=== PATIENT | male | born 1965 | race Caucasian/White ===

== ENCOUNTER 2017-07-03 09:47 | Inpatient (IN) | payer MEDICAID ==
[2017-07-03] MEDS ORDERED: ACETAMINOPHEN 325 MG TABLET PO ONE (10:11)
[2017-07-03] MEDS ORDERED: HYDROMORPHONE HCL INJ/PF 2 MG/ML AMPULE IV ONE ×2 (10:14→12:04)
--- NOTE | 2017-07-03 10:16 | ER Document Report ---
ED Extremity Problem, Lower - General Chief Complaint: Fall Injury Stated Complaint: FALL ANKLE LEG PAIN Time Seen by Provider: 07/03/17 10:10 Notes: The patient is a 52-year-old male, past medical history chronic pain (on 125 mg methadone a day), presents after he fell off an 8 foot ladder and landed on his bilateral feet. He is complaining of right ankle and foot pain and left knee pain. Patient denies back pain, head injury, neck pain, numbness, tingling, open wounds, LOC, syncope or headache. - Related Data Allergies/Adverse Reactions: No Known Allergies Allergy (Unverified 07/03/17 11:07) Past Medical History - General Information source: Patient - Social History Smoking Status: Unknown if Ever Smoked Family History: Reviewed & Not Pertinent Review of Systems - Review of Systems Notes: REVIEW OF SYSTEMS: CONSTITUTIONAL: -fevers, -chills EENT: -eye pain, -difficulty swallowing, -nasal congestion CARDIOVASCULAR: -chest pain, -syncope. RESPIRATORY: -cough, -SOB GASTROINTESTINAL: -abdominal pain, -nausea, -vomiting, -diarrhea GENITOURINARY: -dysuria, -hematuria MUSCULOSKELETAL: +right ankle and foot pain, +left knee pain, -back pain, -neck pain SKIN: -rash or skin lesions. HEMATOLOGIC: -easy bruising or bleeding. LYMPHATIC: -swollen, enlarged glands. NEUROLOGICAL: -altered mental status or loss of consciousness, -headache, - neurologic symptoms PSYCHIATRIC: -anxiety, -depression. ALL OTHER SYSTEMS REVIEWED AND NEGATIVE. Physical Exam - Vital signs Vitals: Temp Pulse Resp BP Pulse Ox 98.8 F 66 12 151/57 H 98 07/03/17 10:21 07/03/17 10:21 07/03/17 10:21 07/03/17 10:21 07/03/17 10:21 - Notes Notes: PHYSICAL EXAMINATION: GENERAL: Uncomfortable. HEAD: Atraumatic, normocephalic. EYES: Pupils equal round and reactive to light, extraocular movements intact, sclera anicteric, conjunctiva are normal. ENT: nares patent, oropharynx clear without exudates. Moist mucous membranes. NECK: Normal range of motion, supple without lymphadenopathy LUNGS: Breath sounds clear to auscultation bilaterally and equal. No wheezes rales or rhonchi. HEART: Regular rate and rhythm without murmurs ABDOMEN: Soft, nontender, normoactive bowel sounds. No guarding, no rebound. No masses appreciated. EXTREMITIES: Swelling and tenderness of right calcaneus. Tenderness and swelling of left knee. Strong distal pulses. NEUROLOGICAL: Cranial nerves grossly intact. Normal speech. Normal sensory and motor exams. PSYCH: Normal mood, normal affect. SKIN: Warm, Dry, normal turgor, no rashes or lesions noted. Course - Re-evaluation Re-evalutation: Patient with a right calcaneal fracture and left proximal comminuted tibia fracture after a fall off a a foot ladder where he landed on his feet. He has no lumbar tenderness or any other injuries. Patient's pain under control after 2 mg IV Dilaudid. 07/03/17 12:[address] Shah. He will consult on patient if the patient is unable to perform ADLs at home. Spoke to patient and offered him outpatient follow-up or admission. Because patient has a left proximal tibia fracture and a right calcaneal fracture, he thinks it will be difficult for him to go up his multiple stairs and steps in his house. Agree that admission is prudent for this patient to help prevent any further injuries. He does not have a primary care physician. 07/03/17 12:[address] Ledbetter and she has accepted patient to Medicine floor. - Vital Signs Vital signs: Temp Pulse Resp BP Pulse Ox 98.8 F 66 12 151/57 H 98 07/03/17 10:21 07/03/17 10:21 07/03/17 10:21 07/03/17 10:21 07/03/17 10:21 - Laboratory Result Diagrams: 07/03/17 13:28 07/03/17 13:28 Laboratory results interpreted by me: 07/03/17 07/03/17 13:28 13:28 WBC 16.2 H Hgb 12.9 L RDW 14.2 H Seg Neutrophils % 88.4 H Lymphocytes % 7.7 L Absolute Neutrophils 14.3 H Glucose 127 H Alkaline Phosphatase 36 L - Diagnostic Test Radiology reviewed: Image reviewed, Reports reviewed Radiology results interpreted by me: Right ankle x-ray: Apparent calcaneal fractures. No acute abnormality is seen in the ankle. Left knee x-ray: Comminuted fracture of the proximal tibia. Discharge - Discharge Clinical Impression: Impaired ambulation Right calcaneal fracture Qualifiers: Encounter type: initial encounter Calcaneus location: unspecified portion of calcaneus Fracture type: closed Fracture alignment: nondisplaced Qualified Code( s): S92.001A - Unspecified fracture of right calcaneus, initial encounter for closed fracture Closed fracture of left proximal tibia Qualifiers: Encounter type: initial encounter Fracture morphology: unspecified fracture morphology Qualified Code(s): S82.102A - Unspecified fracture of upper end of left tibia, initial encounter for closed fracture Condition: Stable Disposition: ADMITTED INPATIENT Admitting Provider: Hospitalist - [facility] Unit Admitted: Medical Floor
--- NOTE | 2017-07-03 11:57 | RADIOLOGY REPORT (SQ) ---
EXAM DESCRIPTION: ANKLE RIGHT COMPLETE COMPLETED DATE/TIME: 07/03/2017 11:33 am REASON FOR STUDY: Fall COMPARISON: None. NUMBER OF VIEWS: Three views. TECHNIQUE: AP, lateral, and oblique radiographic images acquired of the right ankle. LIMITATIONS: Please note: There is a demographics mismatch warning. FINDINGS: MINERALIZATION: Normal. BONES: No acute fracture dislocation the ankle. However, the calcaneus has a heterogeneous appearanc e suggestive of fractures. JOINTS: No effusions. SOFT TISSUES: No soft tissue swelling. No foreign body. OTHER: No other significant finding. IMPRESSION: Apparent calcaneal fractures. No acute abnormality is seen in the ankle. TECHNICAL DOCUMENTATION: JOB ID: [id number] [employer]- All Rights Reserved Reading location - IP/workstation name: [email or web address]
--- NOTE | 2017-07-03 12:01 | RADIOLOGY REPORT (SQ) ---
EXAM DESCRIPTION: KNEE RIGHT 2 VIEWS COMPLETED DATE/TIME: 07/03/2017 11:33 am REASON FOR STUDY: right knee pain, fall COMPARISON: None. NUMBER OF VIEWS: Two views. TECHNIQUE: AP and lateral radiographic images acquired of the right knee. LIMITATIONS: Demographics mismatch warning FINDINGS: MINERALIZATION: Normal. BONES: There is a comminuted fracture of the proximal tibia predominantly involving the lateral tibia l plateau. However, there is an oblique fracture line extending from lateral to the lateral tibial s pine obliquely in medially with a large fragment there is apparently slipped medially and inferiorly. JOINT: Joint effusion is present SOFT TISSUES: No soft tissue swelling. No radio-opaque foreign body. OTHER: No other significant finding. IMPRESSION: Comminuted fracture of the proximal tibia. TECHNICAL DOCUMENTATION: JOB ID: [id number] [employer]- All Rights Reserved Reading location - IP/workstation name: [email or web address]
[2017-07-03] MEDS ORDERED: MORPHINE SULFATE 10 MG/ML INJ IV ONE (13:51)
[2017-07-03 13:53] LABS: BASOPHILS % (AUTO) 0.1 % (0-2); EOSINOPHILS % (AUTO) 0.1 % (0-6); HEMATOCRIT 39.5 % (37.9-51.0); HEMOGLOBIN 12.9 g/dL (13.5-17.0); LYMPHOCYTES % (AUTO) 7.7 % (13-45); MEAN CORPUSCULAR HEMOGLOBIN 28.7 pg (27.0-33.4); MEAN CORPUSCULAR HGB CONC 32.6 g/dL (32.0-36.0); MEAN CORPUSCULAR VOLUME 88 fl (80-97); MONOCYTES % (AUTO) 3.7 % (3-13); PLATELET COUNT 282 10^3/uL (150-450); RED CELL DISTRIBUTION WIDTH 14.2 % (11.5-14.0); SEGMENTED NEUTROPHILS % (AUTO) 88.4 % (42-78); WHITE BLOOD COUNT 16.2 10^3/uL (4.0-10.5)
[2017-07-03 13:54] LABS: ABSOLUTE LYMPHOCYTES (AUTO) 1.2 10^3/uL (0.5-4.7); ABSOLUTE MONOCYTES (AUTO) 0.6 10^3/uL (0.1-1.4); ABSOLUTE NEUT (AUTO) 14.3 10^3/uL (1.7-8.2); TOTAL CELLS COUNTED % (AUTO) 100 %
[2017-07-03 14:01] LABS: INTERNATIONAL RATION (INR) 0.94; PROTHROMBIN TIME 13.3 SEC (11.4-15.4)
[2017-07-03 14:02] LABS: PARTIAL THROMBOPLASTIN TIME 28.1 SEC (23.5-35.8)
[2017-07-03 14:11] LABS: ALANINE AMINOTRANSFERASE 57 U/L (21-72); ALBUMIN 4.1 g/dL (3.5-5.0); ALKALINE PHOSPHATASE 36 U/L (38-126); ANION GAP 9 (5-19); ASPARTATE AMINO TRANSFERASE 47 U/L (17-59); BILIRUBIN,DIRECT 0.4 mg/dL (0.0-0.4); BILIRUBIN,TOTAL 0.4 mg/dL (0.2-1.3); BLOOD UREA NITROGEN 14 mg/dL (7-20); CALCIUM 9.5 mg/dL (8.4-10.2); CARBON DIOXIDE 27 mmol/L (22-30); CHLORIDE 104 mmol/L (98-107); GLUCOSE 127 mg/dL (75-110); POTASSIUM 4.1 mmol/L (3.6-5.0); SODIUM 140.4 mmol/L (137-145); TOTAL PROTEIN 7.3 g/dL (6.3-8.2)
[2017-07-03] MEDS ORDERED: TEMAZEPAM 15 MG CAPSULE PO PRN (14:20)
[2017-07-03] MEDS ORDERED: IPRATROPIUM/ALBUTEROL 0.5-2.5 MG/3 ML AMPUL NEB PRN (14:20)
[2017-07-03] MEDS ORDERED: ONDANSETRON HCL INJ/PF 4 MG/2 ML SDV IV PRN (14:20)
--- NOTE | 2017-07-03 14:22 | RADIOLOGY REPORT (SQ) ---
EXAM DESCRIPTION: CHEST SINGLE VIEW COMPLETED DATE/TIME: 07/03/2017 2:15 pm REASON FOR STUDY: pre-op COMPARISON: None. EXAM PARAMETERS: NUMBER OF VIEWS: One view. TECHNIQUE: Single frontal radiographic view of the chest acquired. RADIATION DOSE: NA LIMITATIONS: None. FINDINGS: LUNGS AND PLEURA: No opacities, masses or pneumothorax. No pleural effusion. MEDIASTINUM AND HILAR STRUCTURES: No masses. Contour normal. HEART AND VASCULAR STRUCTURES: Heart normal in size. Normal vasculature. BONES: No acute findings. HARDWARE: None in the chest. OTHER: No other significant finding. IMPRESSION: NO ACUTE RADIOGRAPHIC FINDING IN THE CHEST. TECHNICAL DOCUMENTATION: JOB ID: [id number] [employer]- All Rights Reserved Reading location - IP/workstation name: [email or web address]
[2017-07-03] MEDS: MORPHINE SULFATE 10 MG/ML INJ IV PRN ×3 (16:15→22:53)
[2017-07-03] MEDS: DEXTROSE 5%-1/2 NORMAL SALINE 1,000 ML IV PRN (16:30)
[2017-07-03] MEDS: OXYCODONE-ACETAMINOPHEN 5-325 MG TABLET PO PRN (17:57)
--- NOTE | 2017-07-03 20:25 | PDOC H&P ---
History of Present Illness Admission Date/PCP: 07/03/17 14:37 Patient complains of: Falling off the ladder History of Present Illness: MARS LUVEANO is a 52 year old male Patient apparently fell from a ladder and sustained a right calcaneal fracture and left proximal comminuted tibia fracture. The orthopedist was consulted and at this point patient is admitted for pain management and stabilization prior to discharge. Past medical history although he is on chronic methadone use and opioid dependence Past Medical History Medical History: None Social History Information Source: Patient Smoking Status: Unknown if Ever Smoked Drugs: Methadone Hx Prescription Drug Abuse: No - Advance Directive Resuscitation Status: Full Code Family History Family History: Reviewed & Not Pertinent Parental Family History Reviewed: No Children Family History Reviewed: No Sibling(s) Family History Reviewed.: No Medication/Allergy Home Medications: No Home Medications 07/03/17 Allergies/Adverse Reactions: No Known Allergies Allergy (Unverified 07/03/17 11:07) Review of Systems All systems: reviewed and no additional remarkable complaints except as stated Physical Exam Vital Signs: Temp Pulse Resp BP Pulse Ox 98.9 F 73 20 162/67 H 97 07/03/17 17:41 07/03/17 17:41 07/03/17 17:41 07/03/17 17:41 07/03/17 17:41 Intake & Output 07/02/17 07/03/17 07/04/17 06:59 06:59 06:59 Weight 90.718 kg General appearance: PRESENT: no acute distress, cooperative Head exam: PRESENT: atraumatic Eye exam: PRESENT: conjunctival injection Ear exam: PRESENT: normal external ear exam Mouth exam: PRESENT: moist, tongue midline Neck exam: ABSENT: carotid bruit, JVD, lymphadenopathy, thyromegaly Respiratory exam: PRESENT: accessory muscle use Cardiovascular exam: PRESENT: RRR. ABSENT: diastolic murmur, rubs, systolic murmur Pulses: PRESENT: normal dorsalis pedis pul GI/Abdominal exam: PRESENT: ascites Rectal exam: PRESENT: deferred Extremities exam: PRESENT: other - Cast Musculoskeletal exam: PRESENT: other - R leg in sift cast Neurological exam: PRESENT: alert, awake, oriented to person, oriented to place , oriented to time, oriented to situation, CN II-XII grossly intact. ABSENT: motor sensory deficit Psychiatric exam: PRESENT: appropriate affect, normal mood. ABSENT: homicidal ideation, suicidal ideation Skin exam: PRESENT: dry, intact, warm. ABSENT: cyanosis, rash Results Laboratory Results: Laboratory 07/03/17 07/03/17 07/03/17 13:28 13:28 13:28 WBC 16.2 H RBC 4.50 Hgb 12.9 L Hct 39.5 MCV 88 MCH 28.7 MCHC 32.6 RDW 14.2 H Plt Count 282 Seg Neutrophils % 88.4 H Lymphocytes % 7.7 L Monocytes % 3.7 Eosinophils % 0.1 Basophils % 0.1 Absolute Neutrophils 14.3 H Absolute Lymphocytes 1.2 Absolute Monocytes 0.6 Absolute Eosinophils 0.0 Absolute Basophils 0.0 PT 13.3 INR 0.94 APTT 28.1 Sodium 140.4 Potassium 4.1 Chloride 104 Carbon Dioxide 27 Anion Gap 9 BUN 14 Creatinine 0.57 Est GFR ( Amer) > 60 Est GFR (Non-Af Amer) > 60 Glucose 127 H Calcium 9.5 Total Bilirubin 0.4 Direct Bilirubin 0.4 Neonat Total Bilirubin Not Reportable Neonat Direct Bilirubin Not Reportable Neonat Indirect Bili Not Reportable AST 47 ALT 57 Alkaline Phosphatase 36 L Total Protein 7.3 Albumin 4.1 Impressions: Ankle X-Ray 07/03/17 10:09 IMPRESSION: Apparent calcaneal fractures. No acute abnormality is seen in the ankle. Knee X-Ray 07/03/17 10:13 IMPRESSION: Comminuted fracture of the proximal tibia. Chest X-Ray 07/03/17 12:58 IMPRESSION: NO ACUTE RADIOGRAPHIC FINDING IN THE CHEST. Assessment & Plan - Diagnosis (1) Closed fracture of left proximal tibia Qualifiers: Encounter type: initial encounter Fracture morphology: unspecified fracture morphology Qualified Code(s): S82.102A - Unspecified fracture of upper end of left tibia, initial encounter for closed fracture Is this a current diagnosis for this admission?: Yes Plan: Orthopedics has been consulted and patient will be followed as per ED notes (2) Impaired ambulation Is this a current diagnosis for this admission?: Yes Plan: Physical Therapy as indicated (3) Right calcaneal fracture Qualifiers: Encounter type: initial encounter Calcaneus location: unspecified portion of calcaneus Fracture type: closed Fracture alignment: nondisplaced Qualified Code(s): S92.001A - Unspecified fracture of right calcaneus, initial encounter for closed fracture Is this a current diagnosis for this admission?: Yes Plan: Orthopedic evaluation appreciated (4) Methadone dependence Is this a current diagnosis for this admission?: Yes Plan: Verify dosage and continue use - Time Time Spent: 30 to 50 Minutes Medications reviewed and adjusted accordingly: Yes Anticipated discharge: Home Within: within 48 hours - Inpatient Certification Based on my medical assessment, after consideration of the patient's comorbidities, presenting symptoms, or acuity I expect that the services needed warrant INPATIENT care.: Yes Medical Necessity: Need for Pain Control
[2017-07-04] MEDS: OXYCODONE-ACETAMINOPHEN 5-325 MG TABLET PO PRN (00:27)
[2017-07-04] MEDS: MORPHINE SULFATE 10 MG/ML INJ IV PRN ×3 (02:14→09:07)
[2017-07-04] MEDS: DEXTROSE 5%-1/2 NORMAL SALINE 1,000 ML IV PRN ×2 (02:58→15:14)
[2017-07-04] MEDS ORDERED: OXYCODONE-ACETAMINOPHEN 5-325 MG TABLET PO PRN (07:39)
[2017-07-04] MEDS ORDERED: OXYCODONE HCL IR 5 MG TABLET PO PRN (07:40)
--- NOTE | 2017-07-04 07:59 | PDOC CONSULTATION ---
Consultation Consult Date: 07/04/17 Consult reason:: Bilateral lower extremity trauma History of Present Illness Admission Date/PCP: 07/03/17 14:37 History of Present Illness: Patient is a 52-year-old white male with a past medical history significant for chronic pain syndrome on chronic methadone who fell off an 8 foot step ladder and sustained bilateral lower extremity injuries. Is evaluated in emergency room and diagnosed with a left tibial plateau fracture and right calcaneus fracture. Patient is admitted and orthopedics is consulted for fracture management. Past Medical History Past Medical History: Chronic pain on methadone Social History Information Source: Patient, [facility] Records Smoking Status: Unknown if Ever Smoked Frequency of Alcohol Use: Occasional Drugs: Methadone Hx Prescription Drug Abuse: No - Advance Directive Resuscitation Status: Full Code Family History Family History: Reviewed & Not Pertinent Parental Family History Reviewed: No Children Family History Reviewed: No Sibling(s) Family History Reviewed.: No Medication/Allergy Home Medications: No Home Medications 07/03/17 Allergies/Adverse Reactions: No Known Allergies Allergy (Unverified 07/03/17 11:07) Review of Systems All systems: reviewed and no additional remarkable complaints except as stated - Patient complains of ongoing pain which is unrelieved with morphine and Percocet. States his been unable to sleep all night. Physical Exam Vital Signs: Temp Pulse Resp BP Pulse Ox 37.5 C 89 16 165/76 H 98 07/04/17 00:14 07/04/17 00:14 07/04/17 00:14 07/04/17 00:14 07/04/17 00:14 Intake & Output 07/03/17 07/04/17 07/05/17 06:59 06:59 06:59 Output Total 450 Balance -450 Weight 93.4 kg Physical Exam: The patient is an overweight middle-aged white male, somewhat disheveled appearing General appearance: PRESENT: mild distress, obese, severe distress Head exam: PRESENT: normocephalic Respiratory exam: PRESENT: unlabored Cardiovascular exam: PRESENT: RRR Pulses: PRESENT: +1 pedal pulses bilateral Vascular exam: PRESENT: normal capillary refill GI/Abdominal exam: PRESENT: soft Rectal exam: PRESENT: deferred Extremities exam: PRESENT: other - Right lower extremity is immobilized in a short leg splint. There is brisk capillary refill to the toes. Sensory examination is intact to light touch. Motor function is limited by pain. Left lower extremity is not immobilized. There is considerable knee effusion with ecchymosis about the proximal tibia. The calf is soft. Distal neurovascular examination to the toes is intact. Motor function to the great toe is intact for flexion extension against resistance. Is no skin abnormalities other than the ecchymosis. Neurological exam: PRESENT: alert, awake, oriented to person, oriented to place , oriented to time, oriented to situation. ABSENT: motor sensory deficit Psychiatric exam: PRESENT: agitated, anxious Skin exam: PRESENT: dry, intact, warm. ABSENT: cyanosis, rash Results Impressions: Ankle X-Ray 07/03/17 10:09 IMPRESSION: Apparent calcaneal fractures. No acute abnormality is seen in the ankle. Knee X-Ray 07/03/17 10:13 IMPRESSION: Comminuted fracture of the proximal tibia. Chest X-Ray 07/03/17 12:58 IMPRESSION: NO ACUTE RADIOGRAPHIC FINDING IN THE CHEST. Status: Imported from PACS Assessment & Plan - Diagnosis (1) Closed fracture of left proximal tibia Qualifiers: Encounter type: initial encounter Fracture morphology: unspecified fracture morphology Qualified Code(s): S82.102A - Unspecified fracture of upper end of left tibia, initial encounter for closed fracture Is this a current diagnosis for this admission?: Yes Plan: Patient with a bicondylar tibial plateau fracture a dye punch injury on the lateral articular surface. The patient would best served with an open reduction internal fixation of this fracture. I have ordered a CT scan for preoperative planning and anticipate that we will proceed to the operating room on Thursday (2) Right calcaneal fracture Qualifiers: Encounter type: initial encounter Calcaneus location: unspecified portion of calcaneus Fracture type: closed Fracture alignment: nondisplaced Qualified Code(s): S92.001A - Unspecified fracture of right calcaneus, initial encounter for closed fracture Is this a current diagnosis for this admission?: Yes Plan: Patient with a right calcaneus fracture. Current films are not really adequate to assess the articular component and the subtalar joint. I have ordered a CT scan to better understand this fracture and will possibly recommend surgical intervention (3) Chronic pain Is this a current diagnosis for this admission?: Yes Plan: Patient on chronic methadone. The calcaneal fracture is an injury that is quite frequently very painful. I think will be helpful to enlist the assistance of pain management service not only for preoperative pain control but for postoperative pain control. - Time Time Spent: 50 to 70 Minutes Anticipated discharge: Other Within: Other
--- NOTE | 2017-07-04 09:03 | RADIOLOGY REPORT (SQ) ---
EXAM DESCRIPTION: CT LT LOWER EXTREMITY WITHOUT COMPLETED DATE/TIME: 07/04/2017 8:44 am REASON FOR STUDY: FX LEFT ANKLE AND FOOT (3-D IMAGING) COMPARISON: None. TECHNIQUE: Axial imaging performed through the left knee with reformatted coronal and sagittal imagi ng windowed for bone and soft tissues. Images saved to PACS. 3D IMAGING: Were 3D images as MIP, SSD, or volume rendering performed at the work station? No. All CT scanners at this facility use dose modulation, iterative reconstruction, and/or weight based d osing when appropriate to reduce radiation dose to as low as reasonably achievable (ALARA). [facility]: Dose Right [facility]: CareDose [facility]: Dose Right [facility]: Teradose 4D [facility]: [employer] LIMITATIONS: None. RADIATION DOSE: CT Rad equipment meets quality standard of care and radiation dose reduction techniq ues were employed. CTDIvol: 4.1 mGy. DLP: 107 mGy-cm. mGy. FINDINGS: Comminuted fractures of the medial and lateral tibial plateau. Schatzker type 6 with ramos sverse fracture through the proximal tibial metadiaphysis. Depressed lateral butterfly fragment. Fi bular head is intact. IMPRESSION: Schatzker type 6 tibial plateau fracture. TECHNICAL DOCUMENTATION: JOB ID: [id number] Quality ID # [id number]: Final reports with documentation of one or more dose reduction techniques (e.g., Au tomated exposure control, adjustment of the mA and/or kV according to patient size, use of iterative reconstruction technique) 2010 [employer]- All Rights Reserved Reading location - IP/workstation name: [email or web address]
[2017-07-04] MEDS: ENOXAPARIN SODIUM INJ 40 MG/0.4 ML DISP.SYRIN SUBCUT SCH (09:10)
[2017-07-04] MEDS ORDERED: OXYCODONE HCL SR 10 MG TABLET PO SCH (10:00)
[2017-07-04] MEDS ORDERED: HYDROMORPHONE HCL 2 MG TABLET PO PRN (10:10)
[2017-07-04] MEDS: METHADONE HCL 10 MG TABLET PO SCH ×2 (13:06→21:41)
--- NOTE | 2017-07-04 14:21 | PDOC PROGRESS REPORT ---
Subjective Progress Note for:: 07/04/17 Subjective:: Patient admitted with right cranial fracture and left tibia fracture. He has been seen by the orthopedist who is recommending an open reduction and internal fixation with surgery tentatively scheduled for Thursday. Patient still complaining of pain and pain management has been consulted with recommendations noted. Patient is on long-term methadone use. He otherwise has no significant medical history Reason For Visit: TIBIA FRACTURE Physical Exam Vital Signs: Temp Pulse Resp BP Pulse Ox 98.2 F 72 20 166/70 H 100 07/04/17 12:00 07/04/17 12:00 07/04/17 12:00 07/04/17 12:07/04/17 12:00 Intake & Output 07/03/17 07/04/17 07/05/17 06:59 06:59 06:59 Output Total 450 Balance -450 Weight 93.4 kg General appearance: PRESENT: no acute distress Head exam: PRESENT: atraumatic Ear exam: PRESENT: normal external ear exam Respiratory exam: PRESENT: clear to auscultation karina. ABSENT: rales, rhonchi, wheezes Cardiovascular exam: PRESENT: RRR. ABSENT: diastolic murmur, rubs, systolic murmur Pulses: PRESENT: normal dorsalis pedis pul GI/Abdominal exam: PRESENT: normal bowel sounds, soft. ABSENT: distended, guarding, mass, organolmegaly, rebound, tenderness Extremities exam: PRESENT: other - Right lower extremity in soft cast and tender Left foot swollen and also tender with diminished range of movement Musculoskeletal exam: ABSENT: full ROM Neurological exam: PRESENT: alert, awake, oriented to person, oriented to place , oriented to time, oriented to situation, CN II-XII grossly intact. ABSENT: motor sensory deficit Psychiatric exam: PRESENT: appropriate affect, normal mood. ABSENT: homicidal ideation, suicidal ideation Results Impressions: Ankle X-Ray 07/03/17 10:09 IMPRESSION: Apparent calcaneal fractures. No acute abnormality is seen in the ankle. Knee X-Ray 07/03/17 10:13 IMPRESSION: Comminuted fracture of the proximal tibia. Chest X-Ray 07/03/17 12:58 IMPRESSION: NO ACUTE RADIOGRAPHIC FINDING IN THE CHEST. Assessment & Plan - Diagnosis (1) Closed fracture of left proximal tibia Qualifiers: Encounter type: initial encounter Fracture morphology: unspecified fracture morphology Qualified Code(s): S82.102A - Unspecified fracture of upper end of left tibia, initial encounter for closed fracture Is this a current diagnosis for this admission?: Yes Plan: Plan for OR on Thursday as per Dr. Shah (2) Impaired ambulation Is this a current diagnosis for this admission?: Yes Plan: Secondary to above (3) Right calcaneal fracture Qualifiers: Encounter type: initial encounter Calcaneus location: unspecified portion of calcaneus Fracture type: closed Fracture alignment: nondisplaced Qualified Code(s): S92.001A - Unspecified fracture of right calcaneus, initial encounter for closed fracture Is this a current diagnosis for this admission?: Yes Plan: Orthopedic evaluation appreciated Pain control as outlined (4) Methadone dependence Is this a current diagnosis for this admission?: Yes Plan: Appreciate pain management consultation - Time Time Spent with patient: 15-24 minutes Medications reviewed and adjusted accordingly: Yes Anticipated discharge: Home Within: Other - When stable
[2017-07-04 15:00] LABS: URINE AMPHETAMINES SCREEN NEGATIVE; URINE BARBITURATES SCREEN NEGATIVE; URINE BENZODIAZEPINES SCREEN NEGATIVE; URINE COCAINE SCREEN NEGATIVE; URINE MARIJUANA (THC) SCREEN NEGATIVE; URINE PHENCYCLIDINE SCREEN NEGATIVE
[2017-07-04 15:07] LABS: URINE METHADONE SCREEN UNCONFIRMED POSITIVE
--- NOTE | 2017-07-04 15:29 | RADIOLOGY REPORT (SQ) ---
EXAM DESCRIPTION: CT RT LOWER EXTREMITY WITHOUT COMPLETED DATE/TIME: 07/04/2017 8:44 am REASON FOR STUDY: FX RIGHT ANKLE (3-D IMAGING) COMPARISON: Right ankle films 07/03/2017 TECHNIQUE: Axial imaging performed through the left ankle and foot with reformatted coronal and sagi ttal imaging windowed for bone and soft tissues. Images saved to PACS. 3D IMAGING: Were 3D images as MIP, SSD, or volume rendering performed at the work station? Yes. All CT scanners at this facility use dose modulation, iterative reconstruction, and/or weight based d osing when appropriate to reduce radiation dose to as low as reasonably achievable (ALARA). [facility]: Dose Right [facility]: CareDose [facility]: Dose Right [facility]: Teradose 4D [facility]: [employer] LIMITATIONS: None. RADIATION DOSE: CT Rad equipment meets quality standard of care and radiation dose reduction techniq ues were employed. CTDIvol: 4.1 mGy. DLP: 94 mGy-cm. mGy. FINDINGS: Normal bone density. There is a comminuted fracture through the calcaneus involving the anterior and posterior subtalar mary int and calcaneocuboid joint. Medial displacement of the sustentacular fragment which measures about 15 mm in greatest dimension. The talus, navicular, cuboid, and cuneiform bones are intact. Metatarsals are intact. Although fracture lines extending into the anterior and posterior subtalar joints and calcaneocuboid joint, fracture fragments are essentially nondisplaced. Relationship of the talus and sustentacular Ms. maintained on coronal images 70 through 74. There is extensive soft tissue swelling. Old avulsion fracture, distal tip medial malleolus, best shown on coronal image 75. 3D shaded surface display images yield no additional findings. IMPRESSION: Comminuted acute nondisplaced calcaneal fracture TECHNICAL DOCUMENTATION: JOB ID: [id number] Quality ID # [id number]: Final reports with documentation of one or more dose reduction techniques (e.g., Au tomated exposure control, adjustment of the mA and/or kV according to patient size, use of iterative reconstruction technique) 2010 [employer]- All Rights Reserved Reading location - IP/workstation name: [email or web address]
[2017-07-04] MEDS: CLONIDINE HCL 0.1 MG TABLET PO SCH ×2 (18:34→23:40)
[2017-07-04] MEDS: HYDROMORPHONE HCL 2 MG TABLET PO PRN ×2 (18:35→23:40)
--- NOTE | 2017-07-04 23:48 | EKG REPORT ---
SEVERITY:- NORMAL ECG - SINUS RHYTHM : Confirmed by: Malcolm Chance MD 04-Jul-2017 23:47:25
[2017-07-05] MEDS: DEXTROSE 5%-1/2 NORMAL SALINE 1,000 ML IV PRN ×2 (02:06→13:54)
[2017-07-05] MEDS: HYDROMORPHONE HCL 2 MG TABLET PO PRN ×5 (03:36→23:48)
[2017-07-05] MEDS: METHADONE HCL 10 MG TABLET PO SCH ×3 (05:25→21:23)
[2017-07-05] MEDS: CLONIDINE HCL 0.1 MG TABLET PO SCH ×4 (05:25→23:48)
[2017-07-05] MEDS ORDERED: CEFAZOLIN 2 GM/D5W RTU 2 GM/50 ML RTUPB IV PRN (08:43)
[2017-07-05] MEDS: ENOXAPARIN SODIUM INJ 40 MG/0.4 ML DISP.SYRIN SUBCUT SCH (12:47)
--- NOTE | 2017-07-05 14:45 | PDOC PROGRESS REPORT ---
Subjective Progress Note for:: 07/05/17 Subjective:: Patient admitted with right cranial fracture and left tibia fracture. He has been seen by the orthopedist who is recommending an open reduction and internal fixation with surgery tentatively scheduled for Thursday. Patient still complaining of pain and pain management has been consulted with recommendations noted. Patient is on long-term methadone use and has been seen by pain management. Reason For Visit: TIBIA FRACTURE Physical Exam Vital Signs: Temp Pulse Resp BP Pulse Ox 99.0 F 66 18 132/63 H 97 07/05/17 04:00 07/05/17 07:00 07/05/17 04:00 07/05/17 04:00 07/05/17 04:00 Intake & Output 07/04/17 07/05/17 07/06/17 06:59 06:59 06:59 Intake Total 3670 Output Total 450 1675 Balance -450 1994 Weight 93.4 kg 93.2 kg General appearance: PRESENT: no acute distress Head exam: PRESENT: atraumatic Neck exam: ABSENT: carotid bruit, JVD, lymphadenopathy, thyromegaly Respiratory exam: PRESENT: clear to auscultation karina. ABSENT: rales, rhonchi, wheezes Cardiovascular exam: PRESENT: RRR. ABSENT: diastolic murmur, rubs, systolic murmur GI/Abdominal exam: PRESENT: normal bowel sounds, soft. ABSENT: distended, guarding, mass, organolmegaly, rebound, tenderness Rectal exam: PRESENT: deferred Extremities exam: PRESENT: other Musculoskeletal exam: PRESENT: other - LLE swollen, RLE soft cast Neurological exam: PRESENT: alert, awake, oriented to person, oriented to time, motor sensory deficit Psychiatric exam: PRESENT: appropriate affect, normal mood. ABSENT: homicidal ideation, suicidal ideation Results Impressions: Ankle X-Ray 07/03/17 10:09 IMPRESSION: Apparent calcaneal fractures. No acute abnormality is seen in the ankle. Knee X-Ray 07/03/17 10:13 IMPRESSION: Comminuted fracture of the proximal tibia. Chest X-Ray 07/03/17 12:58 IMPRESSION: NO ACUTE RADIOGRAPHIC FINDING IN THE CHEST. Lower Extremity CT 07/04/17 00:00 IMPRESSION: Comminuted acute nondisplaced calcaneal fracture Assessment & Plan - Diagnosis (1) Closed fracture of left proximal tibia Qualifiers: Encounter type: initial encounter Fracture morphology: unspecified fracture morphology Qualified Code(s): S82.102A - Unspecified fracture of upper end of left tibia, initial encounter for closed fracture Is this a current diagnosis for this admission?: Yes Plan: Plan for OR in am as per Dr. Shah (2) Impaired ambulation Is this a current diagnosis for this admission?: Yes Plan: Secondary to above (3) Right calcaneal fracture Qualifiers: Encounter type: initial encounter Calcaneus location: unspecified portion of calcaneus Fracture type: closed Fracture alignment: nondisplaced Qualified Code(s): S92.001A - Unspecified fracture of right calcaneus, initial encounter for closed fracture Is this a current diagnosis for this admission?: Yes Plan: Pain control as ordered (4) Methadone dependence Is this a current diagnosis for this admission?: Yes Plan: Appreciate pain management consultation. Patient says pain is relatively well controlled. - Time Time Spent with patient: 15-24 minutes Medications reviewed and adjusted accordingly: Yes Anticipated discharge: Acute Rehab
[2017-07-06] MEDS: CLONIDINE HCL 0.1 MG TABLET PO SCH ×3 (05:58→18:46)
[2017-07-06] MEDS: METHADONE HCL 10 MG TABLET PO SCH ×3 (05:58→22:37)
[2017-07-06] MEDS: RINGERS SOLUTION,LACTATED 1,000 ML IV PRN ×2 (07:08→09:02)
[2017-07-06 07:21] LABS: ABSOLUTE EOSINOPHILS # (AUTO) 0.2 10^3/uL (0.0-0.6); ABSOLUTE LYMPHOCYTES (AUTO) 1.8 10^3/uL (0.5-4.7); ABSOLUTE MONOCYTES (AUTO) 0.8 10^3/uL (0.1-1.4); ABSOLUTE NEUT (AUTO) 7.2 10^3/uL (1.7-8.2); BASOPHILS % (AUTO) 0.4 % (0-2); EOSINOPHILS % (AUTO) 1.5 % (0-6); HEMATOCRIT 29.9 % (37.9-51.0); LYMPHOCYTES % (AUTO) 18.1 % (13-45); MEAN CORPUSCULAR HEMOGLOBIN 29.8 pg (27.0-33.4); MEAN CORPUSCULAR HGB CONC 33.9 g/dL (32.0-36.0); MEAN CORPUSCULAR VOLUME 88 fl (80-97); MONOCYTES % (AUTO) 8.2 % (3-13); PLATELET COUNT 221 10^3/uL (150-450); RED CELL DISTRIBUTION WIDTH 13.6 % (11.5-14.0); SEGMENTED NEUTROPHILS % (AUTO) 71.8 % (42-78); TOTAL CELLS COUNTED % (AUTO) 100 %
[2017-07-06 07:22] LABS: HEMOGLOBIN 10.1 g/dL (13.5-17.0)
[2017-07-06 07:38] LABS: ANION GAP 7 (5-19); BLOOD UREA NITROGEN 11 mg/dL (7-20); CALCIUM 8.5 mg/dL (8.4-10.2); CARBON DIOXIDE 27 mmol/L (22-30); CHLORIDE 102 mmol/L (98-107); GLUCOSE 94 mg/dL (75-110); POTASSIUM 3.7 mmol/L (3.6-5.0); SODIUM 136.4 mmol/L (137-145)
[2017-07-06] MEDS: HYDROMORPHONE HCL 2 MG TABLET PO PRN ×2 (07:42→20:49)
[2017-07-06] MEDS ORDERED: ONDANSETRON HCL INJ/PF 4 MG/2 ML SDV ONE (08:26)
[2017-07-06] MEDS ORDERED: DEXAMETHASONE SOD PHOSPHATE INJ 4 MG/1 ML VIAL ONE (08:26)
[2017-07-06] MEDS ORDERED: METOCLOPRAMIDE HCL INJ/PF 10 MG/2 ML SDV ONE (08:26)
[2017-07-06] MEDS ORDERED: SUCCINYLCHOLINE CHLORIDE INJ 200 MG/10 ML VIAL ONE (08:26)
[2017-07-06] MEDS ORDERED: LIDOCAINE 2% INJ-PF (20 MG/ML) 2 ML AMPUL ONE (08:26)
[2017-07-06] MEDS ORDERED: KETOROLAC TROMETHAMINE 60 MG/2 ML SDV ONE (08:26)
[2017-07-06] MEDS: ENOXAPARIN SODIUM INJ 40 MG/0.4 ML DISP.SYRIN SUBCUT SCH (09:03)
--- NOTE | 2017-07-06 10:35 | PDOC PROGRESS REPORT ---
Subjective Progress Note for:: 07/06/17 Subjective:: Patient admitted with right cranial fracture and left tibia fracture. He has been seen by the orthopedist who is recommending an open reduction and internal fixation with surgery tentatively scheduled for Thursday. Patient still complaining of pain and pain management has been consulted with recommendations noted. Patient is on long-term methadone use and has been seen by pain management. Reason For Visit: TIBIA FRACTURE Physical Exam Vital Signs: Temp Pulse Resp BP Pulse Ox 98.1 F 67 16 139/56 H 97 07/06/17 08:39 07/06/17 08:39 07/06/17 08:39 07/06/17 08:39 07/06/17 08:39 Intake & Output 07/05/17 07/06/17 07/07/17 06:59 06:59 06:59 Intake Total 3670 2945 Output Total 1675 2100 Balance 1994 845 Weight 93.2 kg 93.2 kg General appearance: PRESENT: no acute distress Head exam: PRESENT: atraumatic Neck exam: ABSENT: carotid bruit, JVD, lymphadenopathy, thyromegaly Respiratory exam: PRESENT: clear to auscultation karina. ABSENT: rales, rhonchi, wheezes Cardiovascular exam: PRESENT: RRR. ABSENT: diastolic murmur, rubs, systolic murmur Pulses: PRESENT: normal dorsalis pedis pul GI/Abdominal exam: PRESENT: normal bowel sounds, soft. ABSENT: distended, guarding, mass, organolmegaly, rebound, tenderness Rectal exam: PRESENT: deferred Musculoskeletal exam: PRESENT: other - RLE in soft cast Neurological exam: PRESENT: alert, awake, oriented to person, oriented to place , oriented to time, oriented to situation, CN II-XII grossly intact. ABSENT: motor sensory deficit Psychiatric exam: PRESENT: appropriate affect Results Laboratory Results: 07/06/17 06:27 07/06/17 06:27 07/06/17 07/06/17 06:27 06:27 WBC 10.0 RBC 3.40 L Hgb 10.1 L D Hct 29.9 L MCV 88 MCH 29.8 MCHC 33.9 RDW 13.6 Plt Count 221 Seg Neutrophils % 71.8 Lymphocytes % 18.1 Monocytes % 8.2 Eosinophils % 1.5 Basophils % 0.4 Absolute Neutrophils 7.2 Absolute Lymphocytes 1.8 Absolute Monocytes 0.8 Absolute Eosinophils 0.2 Absolute Basophils 0.0 Sodium 136.4 L Potassium 3.7 Chloride 102 Carbon Dioxide 27 Anion Gap 7 BUN 11 Creatinine 0.60 Est GFR ( Amer) > 60 Est GFR (Non-Af Amer) > 60 Glucose 94 Calcium 8.5 Magnesium 2.0 Impressions: Ankle X-Ray 07/03/17 10:09 IMPRESSION: Apparent calcaneal fractures. No acute abnormality is seen in the ankle. Knee X-Ray 07/03/17 10:13 IMPRESSION: Comminuted fracture of the proximal tibia. Chest X-Ray 07/03/17 12:58 IMPRESSION: NO ACUTE RADIOGRAPHIC FINDING IN THE CHEST. Lower Extremity CT 07/04/17 00:00 IMPRESSION: Comminuted acute nondisplaced calcaneal fracture Assessment & Plan - Diagnosis (1) Closed fracture of left proximal tibia Qualifiers: Encounter type: initial encounter Fracture morphology: unspecified fracture morphology Qualified Code(s): S82.102A - Unspecified fracture of upper end of left tibia, initial encounter for closed fracture Is this a current diagnosis for this admission?: Yes Plan: Plan for OR today as per Dr. Shah (2) Impaired ambulation Is this a current diagnosis for this admission?: Yes Plan: Secondary to above (3) Right calcaneal fracture Qualifiers: Encounter type: initial encounter Calcaneus location: unspecified portion of calcaneus Fracture type: closed Fracture alignment: nondisplaced Qualified Code(s): S92.001A - Unspecified fracture of right calcaneus, initial encounter for closed fracture Is this a current diagnosis for this admission?: Yes Plan: Pain control as ordered (4) Methadone dependence Is this a current diagnosis for this admission?: Yes (5) Anemia Qualifiers: Anemia type: unspecified type Qualified Code(s): D64.9 - Anemia, unspecified Is this a current diagnosis for this admission?: Yes Plan: Likely due to hemodilution. Will monitor - Time Time Spent with patient: 15-24 minutes Medications reviewed and adjusted accordingly: Yes Anticipated discharge: Home Within: within 72 hours - Inpatient Certification Based on my medical assessment, after consideration of the patient's comorbidities, presenting symptoms, or acuity I expect that the services needed warrant INPATIENT care.: Yes
[2017-07-06] MEDS ORDERED: FENTANYL CITRATE INJ/PF 250 MCG/5 ML AMPULE ONE (10:47)
[2017-07-06] MEDS ORDERED: PROPOFOL INJ 200 MG/20 ML VIAL IV ONE (10:48)
[2017-07-06] MEDS ORDERED: EPHEDRINE SULFATE INJ 50 MG/1 ML AMPULE ONE (10:48)
[2017-07-06] MEDS ORDERED: MIDAZOLAM 2 MG/2 ML INJ ONE (10:48)
[2017-07-06] MEDS ORDERED: ACETAMINOPHEN 100 ML IV ONE (10:48)
[2017-07-06] MEDS ORDERED: CEFAZOLIN INJ 1 GM VIAL ONE (11:50)
[2017-07-06] MEDS ORDERED: FENTANYL CITRATE INJ/PF 100 MCG/2 ML AMPUL IV PRN ×6 (11:55→14:53)
[2017-07-06] MEDS ORDERED: PROMETHAZINE HCL INJ 25 MG/1 ML VIAL IV PRN ×4 (11:55→14:53)
[2017-07-06] MEDS ORDERED: DIPHENHYDRAMINE HCL 50 MG/ML VIAL IV PRN ×2 (11:55→14:53)
[2017-07-06] MEDS ORDERED: FENTANYL CITRATE INJ/PF 100 MCG/2 ML AMPUL ONE (12:34)
[2017-07-06] MEDS ORDERED: ONDANSETRON HCL INJ/PF 4 MG/2 ML SDV IV PRN ×2 (12:35→13:30)
--- NOTE | 2017-07-06 13:50 | Operative Report ---
Operative Report DATE OF SURGERY: 07/06/17 PREOPERATIVE DIAGNOSIS: Left bicondylar tibial plateau fracture. Right intra- articular calcaneus fracture OPERATION: Open reduction internal fixation of left bicondylar tibial plateau fracture. Open reduction internal fixation of right calcaneus fracture SURGEON: MICHELINE GONZALEZ ANESTHESIA: GA PROCEDURE: With the patient supine position on the operating table the left lower extremities prepped and draped in a sterile fashion. The limb was elevated for exsanguination tourniquet inflated to 350 torr. A hockey-stick incision was made over the left proximal lateral tibial plateau and sharp dissection was used to carry the incision down to the cortical bone and elevating the muscle off the lateral aspect of the tibial metadiaphysis. The fracture was easily identified. The lateral fracture is opened as in a book to allow reduction of the central depressed fragment. This is elevated using a fracture lifting device and held in place with a pin. The lateral cortex is then closed and a [place] titanium lateral periarticular proximal tibial plate is applied to the lateral surface. A pelvic reduction forceps was then placed across the fracture and used to squeeze the lateral cortex to reduce the medial lateral cortex to what appears to be an anatomic reduction as well as a reduction of the medial cortical break. 3 screws were then placed proximally in the sub-articular level to maintain the reduction of the fracture. A single screw was then placed into the proximal diaphysis to hold the plate against the bone distally. Hydrocet bone substitute is then introduced through the anterior cortical crack and used to support the laterally pressed articular fragment. At this point the remainder of the screws proximally and distally are filled in with a combination of cortical and locking screws. The tourniquet is deflated. Hemostasis obtained with electrocautery. The wound is irrigated with bulb lavage. A subsequent closed using Vicryl followed by sara. A sterile compressive dressings applied Attention is now turned to the calcaneal fracture. The patient was reprepped and draped involving the right lower extremity. The limb was elevated for exsanguination tourniquet inflated to 350 torr. A curved incision was made over the posterior and inferior aspects of the lateral calcaneus and sharp dissection was used and carried incision down through the periosteum. The soft tissues limit is elevated as a single layer until the subtalar joint is exposed and this is held with 3 pins through the talus. A Steinmann pin is placed into the plantar surface of the calcaneus and used to distract the fracture. As this occurs pressure was placed against the lateral cortex to reduce the lateral cortex. Looking into the subtalar joint and subtalar joint is anatomically reduced. Subsequent medium size titanium Adolfo plate is placed along the lateral aspect of the calcaneus and secured with a combination of locking and cortical screws. Hardware placement and fracture reduction are checked fluoroscopically and felt to be adequate. The tourniquet is deflated. Hemostasis obtained with electrocautery. The wound is closed in layers with interrupted Vicryl followed by sara. A sterile compressive dressing and posterior plaster splint were applied and the patient's return to the PACU in satisfactory condition.
[2017-07-06] MEDS ORDERED: MEPERIDINE HCL/PF INJ 25 MG/1 ML DISP.SYRIN IV PRN (14:53)
[2017-07-06] MEDS ORDERED: MEPERIDINE HCL/PF INJ 25 MG/1 ML DISP.SYRIN ONE ×2 (14:54→15:02)
--- NOTE | 2017-07-06 15:18 | RADIOLOGY REPORT (SQ) ---
EXAM DESCRIPTION: NO CHG FLUORO; TIBIA FIBULA LEFT COMPLETED DATE/TIME: 07/06/2017 3:00 pm REASON FOR STUDY: ORIF LEFT TIB/FIB ASST WITH FLUORO IN OR COMPARISON: None. FLUOROSCOPY TIME: 0.9 minutes 5 Images saved to PACS RADIATION DOSE: 4.3 mGy LIMITATIONS: None. PROCEDURE: Open reduction internal fixation of proximal tibial fractures appear FINDINGS: Images obtained from fluoro document the placement of a compression plate on the lateral a spect of the proximal tibia secured by multiple screws. IMPRESSION: Open reduction internal fixation of proximal tibial fracture. Refer to operative note f or further information. COMMENT: PQRS 6045F: Fluoroscopy time of the procedure is documented in the report. TECHNICAL DOCUMENTATION: JOB ID: [id number] [email or web address]- All Rights Reserved Reading location - IP/workstation name: [email or web address]
--- NOTE | 2017-07-06 15:18 | RADIOLOGY REPORT (SQ) ---
EXAM DESCRIPTION: NO CHG FLUORO; TIBIA FIBULA LEFT COMPLETED DATE/TIME: 07/06/2017 3:00 pm REASON FOR STUDY: ORIF LEFT TIB/FIB ASST WITH FLUORO IN OR COMPARISON: None. FLUOROSCOPY TIME: 0.9 minutes 5 Images saved to PACS RADIATION DOSE: 4.3 mGy LIMITATIONS: None. PROCEDURE: Open reduction internal fixation of proximal tibial fractures appear FINDINGS: Images obtained from fluoro document the placement of a compression plate on the lateral a spect of the proximal tibia secured by multiple screws. IMPRESSION: Open reduction internal fixation of proximal tibial fracture. Refer to operative note f or further information. COMMENT: PQRS 6045F: Fluoroscopy time of the procedure is documented in the report. TECHNICAL DOCUMENTATION: JOB ID: [id number] [employer]- All Rights Reserved Reading location - IP/workstation name: [email or web address]
--- NOTE | 2017-07-06 15:19 | RADIOLOGY REPORT (SQ) ---
EXAM DESCRIPTION: NO CHG FLUORO; OS CALCIS/HEEL RIGHT COMPLETED DATE/TIME: 07/06/2017 3:00 pm REASON FOR STUDY: ORIF RT CALCANEOUS ASST WITH FLUORO IN OR COMPARISON: None. FLUOROSCOPY TIME: 0.1 minutes 4 Images saved to PACS RADIATION DOSE: 0.5 mGy LIMITATIONS: None. PROCEDURE: Open reduction internal fixation of calcaneal fracture. FINDINGS: 4 images obtained with fluoro document the placement of a lateral plate secured by multipl e screws. IMPRESSION: Open reduction internal fixation of calcaneal fracture. Refer to operative note for fur ther information. COMMENT: PQRS 6045F: Fluoroscopy time of the procedure is documented in the report. TECHNICAL DOCUMENTATION: JOB ID: [id number] [employer]- All Rights Reserved Reading location - IP/workstation name: [email or web address]
--- NOTE | 2017-07-06 15:19 | RADIOLOGY REPORT (SQ) ---
EXAM DESCRIPTION: NO CHG FLUORO; OS CALCIS/HEEL RIGHT COMPLETED DATE/TIME: 07/06/2017 3:00 pm REASON FOR STUDY: ORIF RT CALCANEOUS ASST WITH FLUORO IN OR COMPARISON: None. FLUOROSCOPY TIME: 0.1 minutes 4 Images saved to PACS RADIATION DOSE: 0.5 mGy LIMITATIONS: None. PROCEDURE: Open reduction internal fixation of calcaneal fracture. FINDINGS: 4 images obtained with fluoro document the placement of a lateral plate secured by multipl e screws. IMPRESSION: Open reduction internal fixation of calcaneal fracture. Refer to operative note for fur ther information. COMMENT: PQRS 6045F: Fluoroscopy time of the procedure is documented in the report. TECHNICAL DOCUMENTATION: JOB ID: [id number] [employer]- All Rights Reserved Reading location - IP/workstation name: [email or web address]
[2017-07-06] MEDS ORDERED: LORAZEPAM INJ 2 MG/1 ML VIAL ONE (15:23)
[2017-07-06] MEDS: KETOROLAC TROMETHAMINE 60 MG/2 ML SDV ONE ×2 (15:30→15:32)
[2017-07-06] MEDS: CEFAZOLIN 2 GM/D5W RTU 2 GM/50 ML RTUPB IV SCH (22:36)
[2017-07-07] MEDS: CLONIDINE HCL 0.1 MG TABLET PO SCH ×4 (00:27→17:23)
[2017-07-07] MEDS: HYDROMORPHONE HCL 2 MG TABLET PO PRN ×6 (00:28→22:21)
[2017-07-07 04:42] LABS: ABSOLUTE LYMPHOCYTES (AUTO) 0.9 10^3/uL (0.5-4.7); ABSOLUTE MONOCYTES (AUTO) 1.1 10^3/uL (0.1-1.4); ABSOLUTE NEUT (AUTO) 10.2 10^3/uL (1.7-8.2); BASOPHILS % (AUTO) 0.1 % (0-2); HEMATOCRIT 26.5 % (37.9-51.0); LYMPHOCYTES % (AUTO) 7.6 % (13-45); MEAN CORPUSCULAR HEMOGLOBIN 29.5 pg (27.0-33.4); MEAN CORPUSCULAR HGB CONC 33.8 g/dL (32.0-36.0); MEAN CORPUSCULAR VOLUME 87 fl (80-97); MONOCYTES % (AUTO) 9.2 % (3-13); PLATELET COUNT 255 10^3/uL (150-450); RED BLOOD COUNT 3.04 10^6/uL (4.35-5.55); RED CELL DISTRIBUTION WIDTH 13.7 % (11.5-14.0); SEGMENTED NEUTROPHILS % (AUTO) 83.1 % (42-78); TOTAL CELLS COUNTED % (AUTO) 100 %; WHITE BLOOD COUNT 12.3 10^3/uL (4.0-10.5)
[2017-07-07 05:09] LABS: BLOOD UREA NITROGEN 13 mg/dL (7-20); CALCIUM 8.9 mg/dL (8.4-10.2); CARBON DIOXIDE 27 mmol/L (22-30); GLUCOSE 112 mg/dL (75-110); SODIUM 137.4 mmol/L (137-145)
[2017-07-07] MEDS: CEFAZOLIN 2 GM/D5W RTU 2 GM/50 ML RTUPB IV SCH (05:10)
[2017-07-07 05:11] LABS: ANION GAP 10 (5-19); CHLORIDE 100 mmol/L (98-107)
[2017-07-07] MEDS: METHADONE HCL 10 MG TABLET PO SCH ×3 (06:10→21:20)
--- NOTE | 2017-07-07 06:36 | PDOC PROGRESS REPORT ---
Subjective Progress Note for:: 07/07/17 Reason For Visit: TIBIA FRACTURE 52-year-old white male postop day 1 from open reduction internal fixation of a right calcaneal fracture and left tibial plateau fracture. The patient is comfortable this morning and in good spirits. Physical Exam Vital Signs: Temp Pulse Resp BP Pulse Ox 37.1 C 74 15 121/57 L 95 07/07/17 03:43 07/07/17 03:43 07/07/17 03:43 07/07/17 03:43 07/07/17 03:43 Intake & Output 07/05/17 07/06/17 07/07/17 06:59 06:59 06:59 Intake Total 3670 2945 56620 Output Total 1675 2100 1750 Balance 1994 845 34127 Weight 93.2 kg 93.2 kg 93.1 kg General appearance: PRESENT: no acute distress, well-nourished Head exam: PRESENT: normocephalic Respiratory exam: PRESENT: unlabored Cardiovascular exam: PRESENT: RRR Vascular exam: PRESENT: normal capillary refill GI/Abdominal exam: PRESENT: soft Rectal exam: PRESENT: deferred Extremities exam: PRESENT: other - Right lower extremity and a below-knee posterior plaster splint. Left lower extremity in a knee immobilizer. Dressings are dry and intact. Distal neurovascular examination is intact. Neurological exam: PRESENT: alert, awake, oriented to person, oriented to place , oriented to time, oriented to situation. ABSENT: motor sensory deficit Psychiatric exam: PRESENT: appropriate affect, normal mood. ABSENT: homicidal ideation, suicidal ideation Skin exam: PRESENT: dry, intact, warm. ABSENT: cyanosis, rash Results Laboratory Results: 07/07/17 04:27 07/07/17 04:27 07/06/17 07/06/17 07/07/17 06:27 06:27 04:27 WBC 10.0 12.3 H RBC 3.40 L 3.04 L Hgb 10.1 L D 9.0 L Hct 29.9 L 26.5 L MCV 88 87 MCH 29.8 29.5 MCHC 33.9 33.8 RDW 13.6 13.7 Plt Count 221 255 Seg Neutrophils % 71.8 83.1 H Lymphocytes % 18.1 7.6 L Monocytes % 8.2 9.2 Eosinophils % 1.5 0.0 Basophils % 0.4 0.1 Absolute Neutrophils 7.2 10.2 H Absolute Lymphocytes 1.8 0.9 Absolute Monocytes 0.8 1.1 Absolute Eosinophils 0.2 0.0 Absolute Basophils 0.0 0.0 Sodium 136.4 L Potassium 3.7 Chloride 102 Carbon Dioxide 27 Anion Gap 7 BUN 11 Creatinine 0.60 Est GFR ( Amer) > 60 Est GFR (Non-Af Amer) > 60 Glucose 94 Calcium 8.5 Magnesium 2.0 07/07/17 04:27 WBC RBC Hgb Hct MCV MCH MCHC RDW Plt Count Seg Neutrophils % Lymphocytes % Monocytes % Eosinophils % Basophils % Absolute Neutrophils Absolute Lymphocytes Absolute Monocytes Absolute Eosinophils Absolute Basophils Sodium 137.4 Potassium 4.0 Chloride 100 Carbon Dioxide 27 Anion Gap 10 BUN 13 Creatinine 0.50 L Est GFR ( Amer) > 60 Est GFR (Non-Af Amer) > 60 Glucose 112 H Calcium 8.9 Magnesium Impressions: Ankle X-Ray 07/03/17 10:09 IMPRESSION: Apparent calcaneal fractures. No acute abnormality is seen in the ankle. Knee X-Ray 07/03/17 10:13 IMPRESSION: Comminuted fracture of the proximal tibia. Chest X-Ray 07/03/17 12:58 IMPRESSION: NO ACUTE RADIOGRAPHIC FINDING IN THE CHEST. Lower Extremity CT 07/04/17 00:00 IMPRESSION: Comminuted acute nondisplaced calcaneal fracture Fluoroscopy 07/06/17 00:00 IMPRESSION: Open reduction internal fixation of calcaneal fracture. Refer to operative note for further information. Os Calcis X-ray 07/06/17 00:00 IMPRESSION: Open reduction internal fixation of calcaneal fracture. Refer to operative note for further information. Tibia/Fibula X-Ray 07/06/17 00:00 IMPRESSION: Open reduction internal fixation of proximal tibial fracture. Refer to operative note for further information. Status: Imported from PACS Assessment & Plan - Diagnosis (1) Closed fracture of left proximal tibia Qualifiers: Encounter type: initial encounter Fracture morphology: unspecified fracture morphology Qualified Code(s): S82.102A - Unspecified fracture of upper end of left tibia, initial encounter for closed fracture Is this a current diagnosis for this admission?: Yes Plan: Status post open reduction internal fixation. Patient can be discharged when comfortable on a nonweightbearing basis. (2) Right calcaneal fracture Qualifiers: Encounter type: initial encounter Calcaneus location: unspecified portion of calcaneus Fracture type: closed Fracture alignment: nondisplaced Qualified Code(s): S92.001A - Unspecified fracture of right calcaneus, initial encounter for closed fracture Is this a current diagnosis for this admission?: Yes Plan: Patient can be discharged on a nonweightbearing basis (3) Chronic pain Is this a current diagnosis for this admission?: Yes
[2017-07-07] MEDS: ASPIRIN 81 MG TABLET, ENT COATED PO SCH (09:17)
[2017-07-07] MEDS: ENOXAPARIN SODIUM INJ 40 MG/0.4 ML DISP.SYRIN SUBCUT SCH (09:17)
--- NOTE | 2017-07-07 16:59 | PDOC PROGRESS REPORT ---
Subjective Progress Note for:: 07/07/17 Subjective:: Patient admitted with right cranial fracture and left tibia fracture. He has been seen by the orthopedist who is recommending an open reduction and internal fixation with surgery tentatively scheduled for Thursday. Patient still complaining of pain and pain management has been consulted with recommendations noted. Patient is on long-term methadone use and has been seen by pain management. Reason For Visit: TIBIA FRACTURE Physical Exam Vital Signs: Temp Pulse Resp BP Pulse Ox 98.7 F 67 16 139/53 H 97 07/07/17 12:27 07/07/17 14:00 07/07/17 12:27 07/07/17 12:27 07/07/17 12:27 Intake & Output 07/06/17 07/07/17 07/08/17 06:59 06:59 06:59 Intake Total 2945 19669 Output Total 2100 1750 Balance 845 32309 Weight 93.2 kg 93.1 kg General appearance: PRESENT: no acute distress Head exam: PRESENT: atraumatic Eye exam: PRESENT: conjunctival injection Respiratory exam: PRESENT: clear to auscultation karina. ABSENT: rales, rhonchi, wheezes Cardiovascular exam: PRESENT: RRR. ABSENT: diastolic murmur, rubs, systolic murmur GI/Abdominal exam: PRESENT: normal bowel sounds, soft. ABSENT: distended, guarding, mass, organolmegaly, rebound, tenderness Rectal exam: PRESENT: deferred Extremities exam: PRESENT: full ROM. ABSENT: calf tenderness, clubbing, pedal edema Musculoskeletal exam: PRESENT: other - swelling and tenderness LE Neurological exam: PRESENT: alert, awake, oriented to person, oriented to time Psychiatric exam: PRESENT: appropriate affect, normal mood. ABSENT: homicidal ideation, suicidal ideation Results Laboratory Results: 07/07/17 04:27 07/07/17 04:27 07/07/17 07/07/17 04:27 04:27 WBC 12.3 H RBC 3.04 L Hgb 9.0 L Hct 26.5 L MCV 87 MCH 29.5 MCHC 33.8 RDW 13.7 Plt Count 255 Seg Neutrophils % 83.1 H Lymphocytes % 7.6 L Monocytes % 9.2 Eosinophils % 0.0 Basophils % 0.1 Absolute Neutrophils 10.2 H Absolute Lymphocytes 0.9 Absolute Monocytes 1.1 Absolute Eosinophils 0.0 Absolute Basophils 0.0 Sodium 137.4 Potassium 4.0 Chloride 100 Carbon Dioxide 27 Anion Gap 10 BUN 13 Creatinine 0.50 L Est GFR ( Amer) > 60 Est GFR (Non-Af Amer) > 60 Glucose 112 H Calcium 8.9 Impressions: Ankle X-Ray 07/03/17 10:09 IMPRESSION: Apparent calcaneal fractures. No acute abnormality is seen in the ankle. Knee X-Ray 07/03/17 10:13 IMPRESSION: Comminuted fracture of the proximal tibia. Chest X-Ray 07/03/17 12:58 IMPRESSION: NO ACUTE RADIOGRAPHIC FINDING IN THE CHEST. Lower Extremity CT 07/04/17 00:00 IMPRESSION: Comminuted acute nondisplaced calcaneal fracture Fluoroscopy 07/06/17 00:00 IMPRESSION: Open reduction internal fixation of calcaneal fracture. Refer to operative note for further information. Os Calcis X-ray 07/06/17 00:00 IMPRESSION: Open reduction internal fixation of calcaneal fracture. Refer to operative note for further information. Tibia/Fibula X-Ray 07/06/17 00:00 IMPRESSION: Open reduction internal fixation of proximal tibial fracture. Refer to operative note for further information. Assessment & Plan - Diagnosis (1) Closed fracture of left proximal tibia Qualifiers: Encounter type: initial encounter Fracture morphology: unspecified fracture morphology Qualified Code(s): S82.102A - Unspecified fracture of upper end of left tibia, initial encounter for closed fracture Is this a current diagnosis for this admission?: Yes Plan: s/p ORIF (2) Impaired ambulation Is this a current diagnosis for this admission?: Yes Plan: Secondary to above PT as ordered. (3) Right calcaneal fracture Qualifiers: Encounter type: initial encounter Calcaneus location: unspecified portion of calcaneus Fracture type: closed Fracture alignment: nondisplaced Qualified Code(s): S92.001A - Unspecified fracture of right calcaneus, initial encounter for closed fracture Is this a current diagnosis for this admission?: Yes Plan: Pain control as ordered. (4) Methadone dependence Is this a current diagnosis for this admission?: Yes (5) Anemia Qualifiers: Anemia type: unspecified type Qualified Code(s): D64.9 - Anemia, unspecified Is this a current diagnosis for this admission?: Yes Plan: Likely due to hemodilution. Will monitor. No evidence of acute blood loss. Will recheck in am - Time Time Spent with patient: 15-24 minutes Medications reviewed and adjusted accordingly: Yes Anticipated discharge: Home
[2017-07-07] MEDS: RINGERS SOLUTION,LACTATED 1,000 ML IV PRN (17:24)
[2017-07-08] MEDS: CLONIDINE HCL 0.1 MG TABLET PO SCH ×4 (00:23→19:09)
[2017-07-08] MEDS: HYDROMORPHONE HCL 2 MG TABLET PO PRN ×4 (01:56→20:13)
[2017-07-08] MEDS: METHADONE HCL 10 MG TABLET PO SCH ×3 (06:27→22:35)
[2017-07-08] MEDS ORDERED: LACTULOSE SYRUP 20 GM/30 ML UDCUP PO ONE (08:01)
[2017-07-08 09:07] LABS: ABSOLUTE BASOPHILS # (AUTO) 0.1 10^3/uL (0.0-0.2); ABSOLUTE EOSINOPHILS # (AUTO) 0.2 10^3/uL (0.0-0.6); ABSOLUTE LYMPHOCYTES (AUTO) 2.8 10^3/uL (0.5-4.7); ABSOLUTE MONOCYTES (AUTO) 1.2 10^3/uL (0.1-1.4); BASOPHILS % (AUTO) 0.4 % (0-2); EOSINOPHILS % (AUTO) 1.3 % (0-6); HEMATOCRIT 29.6 % (37.9-51.0); HEMOGLOBIN 10.1 g/dL (13.5-17.0); MEAN CORPUSCULAR HEMOGLOBIN 29.6 pg (27.0-33.4); MEAN CORPUSCULAR HGB CONC 34.1 g/dL (32.0-36.0); MEAN CORPUSCULAR VOLUME 87 fl (80-97); MONOCYTES % (AUTO) 9.3 % (3-13); PLATELET COUNT 321 10^3/uL (150-450); RED CELL DISTRIBUTION WIDTH 13.9 % (11.5-14.0); TOTAL CELLS COUNTED % (AUTO) 100 %; WHITE BLOOD COUNT 13.2 10^3/uL (4.0-10.5)
[2017-07-08] MEDS: ASPIRIN 81 MG TABLET, ENT COATED PO SCH (09:24)
[2017-07-08] MEDS: ENOXAPARIN SODIUM INJ 40 MG/0.4 ML DISP.SYRIN SUBCUT SCH (09:25)
[2017-07-08] MEDS: NA PHOS,M-B/NA PHOS,DI-BA (ADULT) 133 ML ENEMA PR SCH (12:22)
--- NOTE | 2017-07-08 13:31 | PDOC PROGRESS REPORT ---
Subjective Progress Note for:: 07/08/17 Subjective:: Patient seen in morning rounds with nurse awake alert in bed with complaints of constipation and residual pain. No new reported events overnight Reason For Visit: TIBIA FRACTURE Physical Exam Vital Signs: Temp Pulse Resp BP Pulse Ox 98.3 F 71 16 126/60 H 94 07/08/17 11:41 07/08/17 11:41 07/08/17 11:41 07/08/17 11:41 07/08/17 11:41 Intake & Output 07/07/17 07/08/17 07/09/17 11:59 11:59 11:59 Intake Total 37116 1094 Output Total 1350 2525 Balance 07379 -1431 Weight 93.1 kg 103.1 kg General appearance: PRESENT: cooperative, mild distress Head exam: PRESENT: atraumatic, normocephalic Eye exam: PRESENT: conjunctiva pink, EOMI, PERRLA. ABSENT: scleral icterus Ear exam: PRESENT: normal external ear exam Mouth exam: PRESENT: moist, tongue midline Neck exam: ABSENT: carotid bruit, JVD, lymphadenopathy, thyromegaly Respiratory exam: PRESENT: clear to auscultation karina. ABSENT: rales, rhonchi, wheezes Cardiovascular exam: PRESENT: RRR. ABSENT: diastolic murmur, rubs, systolic murmur Pulses: PRESENT: normal dorsalis pedis pul Vascular exam: PRESENT: normal capillary refill GI/Abdominal exam: PRESENT: diminished bowel sounds, distended, hypoactive bowel sounds, soft, tenderness. ABSENT: ascites, guarding, rigid Rectal exam: PRESENT: deferred Extremities exam: PRESENT: full ROM. ABSENT: calf tenderness, clubbing, pedal edema Neurological exam: PRESENT: alert, awake, oriented to person, oriented to place , oriented to time, oriented to situation, CN II-XII grossly intact. ABSENT: motor sensory deficit Psychiatric exam: PRESENT: appropriate affect, normal mood. ABSENT: homicidal ideation, suicidal ideation Skin exam: PRESENT: dry, intact, warm. ABSENT: cyanosis, rash Results Laboratory Results: 07/08/17 08:53 07/07/17 04:27 07/08/17 08:53 WBC 13.2 H RBC 3.40 L Hgb 10.1 L Hct 29.6 L MCV 87 MCH 29.6 MCHC 34.1 RDW 13.9 Plt Count 321 Seg Neutrophils % 68.0 Lymphocytes % 21.0 Monocytes % 9.3 Eosinophils % 1.3 Basophils % 0.4 Absolute Neutrophils 9.0 H Absolute Lymphocytes 2.8 Absolute Monocytes 1.2 Absolute Eosinophils 0.2 Absolute Basophils 0.1 Impressions: Ankle X-Ray 07/03/17 10:09 IMPRESSION: Apparent calcaneal fractures. No acute abnormality is seen in the ankle. Knee X-Ray 07/03/17 10:13 IMPRESSION: Comminuted fracture of the proximal tibia. Chest X-Ray 07/03/17 12:58 IMPRESSION: NO ACUTE RADIOGRAPHIC FINDING IN THE CHEST. Lower Extremity CT 07/04/17 00:00 IMPRESSION: Comminuted acute nondisplaced calcaneal fracture Fluoroscopy 07/06/17 00:00 IMPRESSION: Open reduction internal fixation of calcaneal fracture. Refer to operative note for further information. Os Calcis X-ray 07/06/17 00:00 IMPRESSION: Open reduction internal fixation of calcaneal fracture. Refer to operative note for further information. Tibia/Fibula X-Ray 07/06/17 00:00 IMPRESSION: Open reduction internal fixation of proximal tibial fracture. Refer to operative note for further information. Assessment & Plan - Diagnosis (1) Anemia Qualifiers: Anemia type: unspecified type Qualified Code(s): D64.9 - Anemia, unspecified Is this a current diagnosis for this admission?: Yes Plan: Hemoglobin stabilized, reevaluate CBC in a.m. (2) Chronic pain Is this a current diagnosis for this admission?: Yes Plan: Patient reluctance to wean Dilaudid today deferred to pain management. (3) Closed fracture of left proximal tibia Qualifiers: Encounter type: initial encounter Fracture morphology: unspecified fracture morphology Qualified Code(s): S82.102A - Unspecified fracture of upper end of left tibia, initial encounter for closed fracture Is this a current diagnosis for this admission?: Yes Plan: Patient tolerated surgery yesterday, physical therapy as tolerated per orthopedic surgery. Discharge planning consulted - Time Time Spent with patient: 15-24 minutes - Inpatient Certification Medical Necessity: Need Close Monitoring Due to Risk of Patient Decompensation
--- NOTE | 2017-07-08 18:46 | PDOC PROGRESS REPORT ---
Subjective Progress Note for:: 07/08/17 Subjective:: 52-year-old white male 2 days status post open reduction internal fixation for right calcaneal fracture and left tibial plateau fracture. Patient reports is well controlled and that he is comfortable. He notes that he feels unaware of the plan for his discharge. He was reassured that discharge planning would speak with him. Reason For Visit: TIBIA FRACTURE Physical Exam Vital Signs: Temp Pulse Resp BP Pulse Ox 37.1 C 76 20 127/61 H 95 07/08/17 16:00 07/08/17 16:00 07/08/17 16:00 07/08/17 16:00 07/08/17 16:00 Intake & Output 07/07/17 07/08/17 07/09/17 06:59 06:59 06:59 Intake Total 58210 1916 Output Total 1750 3025 Balance 18001 -1109 Weight 93.1 kg 103.1 kg General appearance: PRESENT: no acute distress, well-developed, well-nourished Head exam: PRESENT: atraumatic, normocephalic Eye exam: PRESENT: EOMI Respiratory exam: PRESENT: unlabored Pulses: PRESENT: normal dorsalis pedis pul, +2 pedal pulses bilateral Vascular exam: PRESENT: normal capillary refill Additional comments: Patient sitting upright in hospital bed with bilateral lower extremities in full extension both elevated on multiple pillows. Postop compression dressing on right lower extremity is clean dry and intact. This is left in place. Postoperative compression dressing on left lower extremity is also clean dry and intact. This is left in place. Patient also has knee immobilizer brace placed on left tibia. He has brisk capillary refill to toes on bilateral lower extremities and minimal pedal edema. No sensory or motor deficits. Limited range of motion due to compression dressings, knee immobilizer and pain on initiation of motion. Leg lengths equal distal neurovascular exam intact. Additional comments: Due to nature patient's injuries he is on a [place] nonweightbearing basis on bilateral lower extremities. Will likely require wheelchair upon discharge. Neurological exam: PRESENT: alert, awake, oriented to person, oriented to place , oriented to time, oriented to situation, CN II-XII grossly intact. ABSENT: motor sensory deficit Psychiatric exam: PRESENT: appropriate affect, normal mood. ABSENT: homicidal ideation, suicidal ideation Skin exam: PRESENT: dry, intact, warm. ABSENT: cyanosis, rash Results Laboratory Results: 07/08/17 08:53 07/07/17 04:27 07/08/17 08:53 WBC 13.2 H RBC 3.40 L Hgb 10.1 L Hct 29.6 L MCV 87 MCH 29.6 MCHC 34.1 RDW 13.9 Plt Count 321 Seg Neutrophils % 68.0 Lymphocytes % 21.0 Monocytes % 9.3 Eosinophils % 1.3 Basophils % 0.4 Absolute Neutrophils 9.0 H Absolute Lymphocytes 2.8 Absolute Monocytes 1.2 Absolute Eosinophils 0.2 Absolute Basophils 0.1 Impressions: Ankle X-Ray 07/03/17 10:09 IMPRESSION: Apparent calcaneal fractures. No acute abnormality is seen in the ankle. Knee X-Ray 07/03/17 10:13 IMPRESSION: Comminuted fracture of the proximal tibia. Chest X-Ray 07/03/17 12:58 IMPRESSION: NO ACUTE RADIOGRAPHIC FINDING IN THE CHEST. Lower Extremity CT 07/04/17 00:00 IMPRESSION: Comminuted acute nondisplaced calcaneal fracture Fluoroscopy 07/06/17 00:00 IMPRESSION: Open reduction internal fixation of calcaneal fracture. Refer to operative note for further information. Os Calcis X-ray 07/06/17 00:00 IMPRESSION: Open reduction internal fixation of calcaneal fracture. Refer to operative note for further information. Tibia/Fibula X-Ray 07/06/17 00:00 IMPRESSION: Open reduction internal fixation of proximal tibial fracture. Refer to operative note for further information. Assessment & Plan - Diagnosis (1) Closed fracture of left proximal tibia Qualifiers: Encounter type: initial encounter Fracture morphology: unspecified fracture morphology Qualified Code(s): S82.102A - Unspecified fracture of upper end of left tibia, initial encounter for closed fracture Is this a current diagnosis for this admission?: Yes Plan: Patient's postoperative compression dressing and knee immobilizer brace will remain in place until follow-up appointment with Dr. Shah at [facility] for surgery. At that time dressing and sara will be removed. Knee immobilizer brace will likely remain in place for the next 6 weeks. Patient will also remain on a nonweightbearing basis. He will be discharged once he has obtained appropriate medical equipment i.e. a wheelchair for him to mobilize about his house and complete activities of daily living. (2) Right calcaneal fracture Qualifiers: Encounter type: initial encounter Calcaneus location: unspecified portion of calcaneus Fracture type: closed Fracture alignment: nondisplaced Qualified Code(s): S92.001A - Unspecified fracture of right calcaneus, initial encounter for closed fracture Is this a current diagnosis for this admission?: Yes Plan: 2 days status post open reduction internal fixation right calcaneal fracture. Patient's postop dressing is clean dry and intact. This was left in place. It will likely be removed before discharge. Patient is to remain on a strictly nonweightbearing basis likely for the next 6 weeks. He will follow-up with Dr. Shah at [facility] for surgery 2 weeks postoperatively for suture and/or staple removal. Again I believe he is eligible for discharge once appropriate medical equipment i.e. a wheelchair is obtained for him in his home.
[2017-07-09] MEDS: CLONIDINE HCL 0.1 MG TABLET PO SCH ×4 (00:22→17:14)
[2017-07-09] MEDS: HYDROMORPHONE HCL 2 MG TABLET PO PRN ×3 (03:57→17:14)
[2017-07-09] MEDS: METHADONE HCL 10 MG TABLET PO SCH ×3 (06:28→22:11)
[2017-07-09] MEDS: ASPIRIN 81 MG TABLET, ENT COATED PO SCH (09:17)
[2017-07-09] MEDS: ENOXAPARIN SODIUM INJ 40 MG/0.4 ML DISP.SYRIN SUBCUT SCH (09:18)
[2017-07-09] MEDS: NA PHOS,M-B/NA PHOS,DI-BA (ADULT) 133 ML ENEMA PR SCH (09:26)
[2017-07-09] MEDS ORDERED: TEMAZEPAM 15 MG CAPSULE PO PRN (10:00)
[2017-07-09] MEDS ORDERED: ACETAMINOPHEN 325 MG TABLET PO PRN (10:05)
--- NOTE | 2017-07-09 10:10 | PDOC PROGRESS REPORT ---
Subjective Subjective:: Patient seen in morning rounds with nurse awake alert in bed stating he feels better but requesting Po Dilaudid from nurse 5 minutes ago. Patient admits improvement of constipation and tolerating p.o. Diet. No new reported events overnight Discussed with case management for outpatient needs of wheelchair, transfer board and bedside commode. Patient wishes to be discharged with current medications however he has history of opiate dependence and a current patient of the methadone clinic still receiving methadone 40 mg every 8 hours and Dilaudid 6 mg p.o. every 4 hours. Reason For Visit: TIBIA FRACTURE Physical Exam Vital Signs: Temp Pulse Resp BP Pulse Ox 98.4 F 68 17 111/62 95 07/09/17 08:11 07/09/17 08:11 07/09/17 08:11 07/09/17 08:11 07/09/17 08:11 Intake & Output 07/07/17 07/08/17 07/09/17 11:59 11:59 11:59 Intake Total 98756 1094 1470 Output Total 1350 2525 1660 Balance 70363 -1431 -190 Weight 93.1 kg 103.1 kg 104.2 kg General appearance: PRESENT: no acute distress, well-developed, well-nourished Head exam: PRESENT: atraumatic, normocephalic Eye exam: PRESENT: conjunctiva pink, EOMI, PERRLA. ABSENT: scleral icterus Ear exam: PRESENT: normal external ear exam Mouth exam: PRESENT: moist, tongue midline Neck exam: ABSENT: carotid bruit, JVD, lymphadenopathy, thyromegaly Respiratory exam: PRESENT: clear to auscultation karina. ABSENT: rales, rhonchi, wheezes Cardiovascular exam: PRESENT: RRR. ABSENT: diastolic murmur, rubs, systolic murmur Pulses: PRESENT: normal dorsalis pedis pul Vascular exam: PRESENT: normal capillary refill GI/Abdominal exam: PRESENT: normal bowel sounds, soft. ABSENT: distended, guarding, mass, organolmegaly, rebound, tenderness Rectal exam: PRESENT: deferred Extremities exam: PRESENT: full ROM. ABSENT: calf tenderness, clubbing, pedal edema Neurological exam: PRESENT: alert, awake, oriented to person, oriented to place , oriented to time, oriented to situation, CN II-XII grossly intact. ABSENT: motor sensory deficit Psychiatric exam: PRESENT: appropriate affect, normal mood. ABSENT: homicidal ideation, suicidal ideation Skin exam: PRESENT: dry, intact, warm. ABSENT: cyanosis, rash Results Laboratory Results: 07/08/17 08:53 07/07/17 04:27 Impressions: Ankle X-Ray 07/03/17 10:09 IMPRESSION: Apparent calcaneal fractures. No acute abnormality is seen in the ankle. Knee X-Ray 07/03/17 10:13 IMPRESSION: Comminuted fracture of the proximal tibia. Chest X-Ray 07/03/17 12:58 IMPRESSION: NO ACUTE RADIOGRAPHIC FINDING IN THE CHEST. Lower Extremity CT 07/04/17 00:00 IMPRESSION: Comminuted acute nondisplaced calcaneal fracture Fluoroscopy 07/06/17 00:00 IMPRESSION: Open reduction internal fixation of calcaneal fracture. Refer to operative note for further information. Os Calcis X-ray 07/06/17 00:00 IMPRESSION: Open reduction internal fixation of calcaneal fracture. Refer to operative note for further information. Tibia/Fibula X-Ray 07/06/17 00:00 IMPRESSION: Open reduction internal fixation of proximal tibial fracture. Refer to operative note for further information. Assessment & Plan - Diagnosis (1) Anemia Qualifiers: Anemia type: unspecified type Qualified Code(s): D64.9 - Anemia, unspecified Is this a current diagnosis for this admission?: Yes Plan: Hemoglobin stabilized to baseline (2) Chronic pain Is this a current diagnosis for this admission?: Yes Plan: Patient reluctance to wean Dilaudid today deferred to pain management. Continue outpatient regiment of methadone 40 mg every 8 hours. Weaning Dilaudid from 6 to 3 mg every 4 hours as needed with continued titration until discontinued as he is unable to fill both Dilaudid and methadone as an outpatient. (3) Closed fracture of left proximal tibia Qualifiers: Encounter type: initial encounter Fracture morphology: unspecified fracture morphology Qualified Code(s): S82.102A - Unspecified fracture of upper end of left tibia, initial encounter for closed fracture Is this a current diagnosis for this admission?: Yes Plan: Strictly nonweightbearing with knee immobilizer 6 weeks, patient will require home health and physical therapy, follow-up with Dr. Shah at [facility] surgery in 2 weeks for suture and staple removal. - Time Time Spent with patient: 15-24 minutes
[2017-07-09] MEDS: KETOROLAC TROMETHAMINE INJ/PF 30 MG/1 ML SDV IV PRN (12:50)
--- NOTE | 2017-07-09 20:17 | PDOC PROGRESS REPORT ---
Subjective Progress Note for:: 07/09/17 Reason For Visit: TIBIA FRACTURE Physical Exam Vital Signs: Temp Pulse Resp BP Pulse Ox 36.8 C 79 17 126/51 H 100 07/09/17 16:00 07/09/17 16:00 07/09/17 16:00 07/09/17 16:00 07/09/17 16:00 Intake & Output 07/08/17 07/09/17 07/10/17 06:59 06:59 06:59 Intake Total 1916 1470 850 Output Total 3022 0540 1975 Balance -1109 -190 -1125 Weight 103.1 kg 104.2 kg Additonal comments: Bilateral lower extremity dressings are dry clean and intact. Swollen extremities with mild ecchymosis of the right foot status post calcaneus fracture and left knee status post tibial plateau Soft cast. Good sensation to light touch bilateral lower extremities with good capillary refills. Results Laboratory Results: 07/08/17 08:53 07/07/17 04:27 Impressions: Ankle X-Ray 07/03/17 10:09 IMPRESSION: Apparent calcaneal fractures. No acute abnormality is seen in the ankle. Knee X-Ray 07/03/17 10:13 IMPRESSION: Comminuted fracture of the proximal tibia. Chest X-Ray 07/03/17 12:58 IMPRESSION: NO ACUTE RADIOGRAPHIC FINDING IN THE CHEST. Lower Extremity CT 07/04/17 00:00 IMPRESSION: Comminuted acute nondisplaced calcaneal fracture Fluoroscopy 07/06/17 00:00 IMPRESSION: Open reduction internal fixation of calcaneal fracture. Refer to operative note for further information. Os Calcis X-ray 07/06/17 00:00 IMPRESSION: Open reduction internal fixation of calcaneal fracture. Refer to operative note for further information. Tibia/Fibula X-Ray 07/06/17 00:00 IMPRESSION: Open reduction internal fixation of proximal tibial fracture. Refer to operative note for further information. Assessment & Plan - Plan Summary Plan Summary: 52-year-old gentleman status post ORIF of the left tibial plateau and right calcaneus. Continue nonweightbearing bilateral lower extremities. We will discuss changing dressings tomorrow. T knee pain control and DVT prophylaxis
[2017-07-10] MEDS: CLONIDINE HCL 0.1 MG TABLET PO SCH ×4 (01:06→18:01)
[2017-07-10] MEDS: HYDROMORPHONE HCL 2 MG TABLET PO PRN ×3 (01:21→19:34)
[2017-07-10] MEDS: METHADONE HCL 10 MG TABLET PO SCH ×3 (05:53→22:11)
[2017-07-10] MEDS: ASPIRIN 81 MG TABLET, ENT COATED PO SCH (09:58)
[2017-07-10] MEDS: ENOXAPARIN SODIUM INJ 40 MG/0.4 ML DISP.SYRIN SUBCUT SCH (09:59)
[2017-07-10] MEDS: NA PHOS,M-B/NA PHOS,DI-BA (ADULT) 133 ML ENEMA PR SCH (10:16)
[2017-07-10] MEDS ORDERED: LACTULOSE SYRUP 20 GM/30 ML UDCUP PO PRN ×2 (12:21→12:27)
[2017-07-10] MEDS: KETOROLAC TROMETHAMINE INJ/PF 30 MG/1 ML SDV IV PRN (15:19)
--- NOTE | 2017-07-10 15:57 | PDOC PROGRESS REPORT ---
Subjective Progress Note for:: 07/10/17 Reason For Visit: MARS LUEVANO is a 52 year old male who fell from a ladder and sustained a right calcaneal fracture and left proximal comminuted tibia fracture. He was admitted 07/03/2017 to the hospitalist service. Orthopedics were consulted from the ED. He underwent surgical repair 07/06/17 (open reduction internal fixation of a right calcaneal fracture and left tibial plateau fracture.) The rest of his hospital stay has been focused on pain management. He has a history of opioid dependence. He is currently involved in outpatient methadone clinic. He remained in the hospital in order to help wean him off hydromorphone. He is to be nonweightbearing on both legs. With the help of case management, a wheelchair, transfer board and bedside commode will be provided. Physical Exam Vital Signs: Temp Pulse Resp BP Pulse Ox 98.0 F 71 16 112/46 L 99 07/10/17 11:56 07/10/17 11:56 07/10/17 11:56 07/10/17 11:56 07/10/17 11:56 Intake & Output 07/09/17 07/10/17 07/11/17 06:59 06:59 06:59 Intake Total 1470 1182 Output Total 1660 2295 Balance -190 -1113 Weight 104.2 kg 105.2 kg General appearance: PRESENT: no acute distress, well-developed Head exam: PRESENT: atraumatic, normocephalic Eye exam: PRESENT: EOMI, PERRLA Respiratory exam: PRESENT: clear to auscultation karina. ABSENT: rales, rhonchi, wheezes Cardiovascular exam: PRESENT: RRR. ABSENT: diastolic murmur, rubs, systolic murmur GI/Abdominal exam: PRESENT: normal bowel sounds, soft. ABSENT: distended, guarding, mass, organolmegaly, rebound, tenderness Neurological exam: PRESENT: alert, awake, oriented to person, oriented to place , oriented to time, oriented to situation, CN II-XII grossly intact. ABSENT: motor sensory deficit Psychiatric exam: PRESENT: appropriate affect, normal mood. ABSENT: homicidal ideation, suicidal ideation Results Laboratory Results: 07/08/17 08:53 07/07/17 04:27 Impressions: Ankle X-Ray 07/03/17 10:09 IMPRESSION: Apparent calcaneal fractures. No acute abnormality is seen in the ankle. Knee X-Ray 07/03/17 10:13 IMPRESSION: Comminuted fracture of the proximal tibia. Chest X-Ray 07/03/17 12:58 IMPRESSION: NO ACUTE RADIOGRAPHIC FINDING IN THE CHEST. Lower Extremity CT 07/04/17 00:00 IMPRESSION: Comminuted acute nondisplaced calcaneal fracture Fluoroscopy 07/06/17 00:00 IMPRESSION: Open reduction internal fixation of calcaneal fracture. Refer to operative note for further information. Os Calcis X-ray 07/06/17 00:00 IMPRESSION: Open reduction internal fixation of calcaneal fracture. Refer to operative note for further information. Tibia/Fibula X-Ray 07/06/17 00:00 IMPRESSION: Open reduction internal fixation of proximal tibial fracture. Refer to operative note for further information. Assessment & Plan - Diagnosis (1) Chronic pain Qualifiers: Chronic pain type: chronic pain syndrome Qualified Code(s): G89.4 - Chronic pain syndrome Is this a current diagnosis for this admission?: Yes Plan: At the time of discharge, he will need a 10 day supply of methadone. I will give him enough to allow him to follow-up with his methadone clinic. He would not be prescribed any other opioids (2) Closed fracture of left proximal tibia Qualifiers: Encounter type: initial encounter Fracture morphology: unspecified fracture morphology Qualified Code(s): S82.102A - Unspecified fracture of upper end of left tibia, initial encounter for closed fracture Is this a current diagnosis for this admission?: Yes Plan: Nonweightbearing. He will need to follow-up with orthopedics as an outpatient. (3) Methadone dependence Is this a current diagnosis for this admission?: Yes Plan: He will follow-up at his methadone post discharge. (4) Right calcaneal fracture Qualifiers: Encounter type: initial encounter Calcaneus location: unspecified portion of calcaneus Fracture type: closed Fracture alignment: nondisplaced Qualified Code(s): S92.001A - Unspecified fracture of right calcaneus, initial encounter for closed fracture Is this a current diagnosis for this admission?: Yes Plan: Follow-up with orthopedics as an outpatient - Time Time Spent with patient: 25-34 minutes Medications reviewed and adjusted accordingly: Yes Anticipated discharge: Home Within: within 24 hours - Inpatient Certification Based on my medical assessment, after consideration of the patient's comorbidities, presenting symptoms, or acuity I expect that the services needed warrant INPATIENT care.: Yes I certify that my determination is in accordance with my understanding of Medicare's requirements for reasonable and necessary INPATIENT services [42 CFR 412.3e].: Yes Medical Necessity: Need for Pain Control
[2017-07-11] MEDS: CLONIDINE HCL 0.1 MG TABLET PO SCH ×4 (00:16→17:38)
[2017-07-11] MEDS: HYDROMORPHONE HCL 2 MG TABLET PO PRN ×3 (04:43→16:53)
[2017-07-11] MEDS: METHADONE HCL 10 MG TABLET PO SCH ×2 (05:53→21:47)
[2017-07-11] MEDS: ASPIRIN 81 MG TABLET, ENT COATED PO SCH (10:27)
[2017-07-11] MEDS: ENOXAPARIN SODIUM INJ 40 MG/0.4 ML DISP.SYRIN SUBCUT SCH (10:28)
--- NOTE | 2017-07-11 14:57 | PDOC PROGRESS REPORT ---
Subjective Progress Note for:: 07/11/17 Subjective:: No new problems. He is not sure if the DME has been delivered to his brother's house. Reason For Visit: MARS LUEVANO is a 52 year old male who fell from a ladder and sustained a right calcaneal fracture and left proximal comminuted tibia fracture. He was admitted 07/03/2017 to the hospitalist service. Orthopedics were consulted from the ED. He underwent surgical repair 07/06/17 (open reduction internal fixation of a right calcaneal fracture and left tibial plateau fracture.) The rest of his hospital stay has been focused on pain management. He has a history of opioid dependence. He is currently involved in outpatient methadone clinic. He remained in the hospital in order to help wean him off hydromorphone. He is to be nonweightbearing on both legs. With the help of case management, a wheelchair, transfer board and bedside commode will be provided for home use. Physical Exam Vital Signs: Temp Pulse Resp BP Pulse Ox 98.2 F 69 16 114/53 L 97 07/11/17 11:33 07/11/17 11:33 07/11/17 11:33 07/11/17 11:33 07/11/17 11:33 Intake & Output 07/10/17 07/11/17 07/12/17 06:59 06:59 06:59 Intake Total 1182 1307 Output Total 2295 1450 Balance -1113 -143 Weight 105.2 kg 105.6 kg General appearance: PRESENT: no acute distress, well-developed, well-nourished Head exam: PRESENT: atraumatic, normocephalic Eye exam: PRESENT: EOMI, PERRLA Respiratory exam: PRESENT: clear to auscultation karina. ABSENT: rales, rhonchi, wheezes Cardiovascular exam: PRESENT: RRR. ABSENT: diastolic murmur, rubs, systolic murmur GI/Abdominal exam: PRESENT: normal bowel sounds, soft. ABSENT: distended, guarding, mass, organolmegaly, rebound, tenderness Musculoskeletal exam: PRESENT: other - B/LE casts Neurological exam: PRESENT: alert, awake, oriented to person, oriented to place , oriented to time, oriented to situation, CN II-XII grossly intact. ABSENT: motor sensory deficit Skin exam: PRESENT: dry, intact, warm. ABSENT: cyanosis, rash Results Laboratory Results: 07/08/17 08:53 07/07/17 04:27 Impressions: Ankle X-Ray 07/03/17 10:09 IMPRESSION: Apparent calcaneal fractures. No acute abnormality is seen in the ankle. Knee X-Ray 07/03/17 10:13 IMPRESSION: Comminuted fracture of the proximal tibia. Chest X-Ray 07/03/17 12:58 IMPRESSION: NO ACUTE RADIOGRAPHIC FINDING IN THE CHEST. Lower Extremity CT 07/04/17 00:00 IMPRESSION: Comminuted acute nondisplaced calcaneal fracture Fluoroscopy 07/06/17 00:00 IMPRESSION: Open reduction internal fixation of calcaneal fracture. Refer to operative note for further information. Os Calcis X-ray 07/06/17 00:00 IMPRESSION: Open reduction internal fixation of calcaneal fracture. Refer to operative note for further information. Tibia/Fibula X-Ray 07/06/17 00:00 IMPRESSION: Open reduction internal fixation of proximal tibial fracture. Refer to operative note for further information. Assessment & Plan - Diagnosis (1) Chronic pain Qualifiers: Chronic pain type: chronic pain syndrome Qualified Code(s): G89.4 - Chronic pain syndrome Is this a current diagnosis for this admission?: Yes Plan: At the time of discharge, he will need a 10 day supply of methadone. I will give him enough to allow him to follow-up with his methadone clinic. He will not be prescribed any other opioids (2) Closed fracture of left proximal tibia Qualifiers: Encounter type: initial encounter Fracture morphology: unspecified fracture morphology Qualified Code(s): S82.102A - Unspecified fracture of upper end of left tibia, initial encounter for closed fracture Is this a current diagnosis for this admission?: Yes Plan: Nonweightbearing. He will need to follow-up with orthopedics as an outpatient. (3) Methadone dependence Is this a current diagnosis for this admission?: Yes Plan: He will follow-up at his methadone post discharge. (4) Right calcaneal fracture Qualifiers: Encounter type: initial encounter Calcaneus location: unspecified portion of calcaneus Fracture type: closed Fracture alignment: nondisplaced Qualified Code(s): S92.001A - Unspecified fracture of right calcaneus, initial encounter for closed fracture Is this a current diagnosis for this admission?: Yes Plan: Follow-up with orthopedics as an outpatient - Time Time Spent with patient: 15-24 minutes Anticipated discharge: Home - Inpatient Certification Based on my medical assessment, after consideration of the patient's comorbidities, presenting symptoms, or acuity I expect that the services needed warrant INPATIENT care.: Yes I certify that my determination is in accordance with my understanding of Medicare's requirements for reasonable and necessary INPATIENT services [42 CFR 412.3e].: Yes Medical Necessity: Need for Pain Control
[2017-07-11] MEDS ORDERED: METHADONE HCL 10 MG TABLET PO ONE (16:00)
--- NOTE | 2017-07-11 18:47 | PDOC PROGRESS REPORT ---
Subjective Progress Note for:: 07/11/17 Subjective:: Patient states that pain is better controlled. Still requiring IV Dilaudid Reason For Visit: TIBIA FRACTURE Physical Exam Vital Signs: Temp Pulse Resp BP Pulse Ox 36.8 C 59 L 16 108/48 L 98 07/11/17 15:41 07/11/17 15:41 07/11/17 15:41 07/11/17 15:41 07/11/17 15:41 Intake & Output 07/10/17 07/11/17 07/12/17 06:59 06:59 06:59 Intake Total 1182 1307 600 Output Total 2295 7640 1050 Balance -1113 -143 -450 Weight 105.2 kg 105.6 kg Adult Front & Back Image: 1 - Bilateral dressing and splints are dry clean and intact. Sensation is intact to light touch with good capillary refill. Positive swelling and ecchymosis on the right foot. Results Laboratory Results: 07/08/17 08:53 07/07/17 04:27 Impressions: Ankle X-Ray 07/03/17 10:09 IMPRESSION: Apparent calcaneal fractures. No acute abnormality is seen in the ankle. Knee X-Ray 07/03/17 10:13 IMPRESSION: Comminuted fracture of the proximal tibia. Chest X-Ray 07/03/17 12:58 IMPRESSION: NO ACUTE RADIOGRAPHIC FINDING IN THE CHEST. Lower Extremity CT 07/04/17 00:00 IMPRESSION: Comminuted acute nondisplaced calcaneal fracture Fluoroscopy 07/06/17 00:00 IMPRESSION: Open reduction internal fixation of calcaneal fracture. Refer to operative note for further information. Os Calcis X-ray 07/06/17 00:00 IMPRESSION: Open reduction internal fixation of calcaneal fracture. Refer to operative note for further information. Tibia/Fibula X-Ray 07/06/17 00:00 IMPRESSION: Open reduction internal fixation of proximal tibial fracture. Refer to operative note for further information. Assessment & Plan - Plan Summary Plan Summary: 52-year-old gentleman status post ORIF of right calcaneus fracture and ORIF of left tibial plateau fracture. Patient recommend to MO IV Dilaudid. Care per primary team. On the discharge to long-term facility due to nonweightbearing bilateral lower extremities.
[2017-07-11] MEDS: KETOROLAC TROMETHAMINE INJ/PF 30 MG/1 ML SDV IV PRN (21:47)
[2017-07-12] MEDS: CLONIDINE HCL 0.1 MG TABLET PO SCH ×2 (00:41→06:32)
[2017-07-12] MEDS: KETOROLAC TROMETHAMINE INJ/PF 30 MG/1 ML SDV IV PRN (06:37)
[2017-07-12] MEDS: METHADONE HCL 10 MG TABLET PO SCH ×3 (06:37→21:12)
--- NOTE | 2017-07-12 08:53 | PDOC PROGRESS REPORT ---
Subjective Progress Note for:: 07/12/17 Subjective:: No new problems. DME not delivered to home. Reason For Visit: MARS LUEVANO is a 52 year old male who fell from a ladder and sustained a right calcaneal fracture and left proximal comminuted tibia fracture. He was admitted 07/03/2017 to the hospitalist service. Orthopedics were consulted from the ED. He underwent surgical repair 07/06/17 (open reduction internal fixation of a right calcaneal fracture and left tibial plateau fracture.) The rest of his hospital stay has been focused on pain management. He has a history of opioid dependence. He is currently involved in outpatient methadone clinic. He remained in the hospital in order to help wean him off hydromorphone. He is to be nonweightbearing on both legs. With the help of case management, a wheelchair, transfer board and bedside commode will be provided for home use. Physical Exam Vital Signs: Temp Pulse Resp BP Pulse Ox 97.8 F 60 15 108/58 L 100 07/12/17 04:00 07/12/17 07:00 07/12/17 04:00 07/12/17 04:00 07/12/17 04:00 Intake & Output 07/11/17 07/12/17 07/13/17 06:59 06:59 06:59 Intake Total 1307 1170 Output Total 1450 2250 Balance -143 -1080 Weight 105.6 kg 90.5 kg General appearance: PRESENT: no acute distress, well-developed, well-nourished Head exam: PRESENT: atraumatic, normocephalic Eye exam: PRESENT: EOMI, PERRLA Respiratory exam: PRESENT: clear to auscultation karina. ABSENT: rales, rhonchi, wheezes Cardiovascular exam: PRESENT: RRR. ABSENT: diastolic murmur, rubs, systolic murmur GI/Abdominal exam: PRESENT: normal bowel sounds, soft. ABSENT: distended, guarding, mass, organolmegaly, rebound, tenderness Neurological exam: PRESENT: alert, awake, oriented to person, oriented to place , oriented to time, oriented to situation, CN II-XII grossly intact. ABSENT: motor sensory deficit Results Laboratory Results: 07/08/17 08:53 07/07/17 04:27 Impressions: Ankle X-Ray 07/03/17 10:09 IMPRESSION: Apparent calcaneal fractures. No acute abnormality is seen in the ankle. Knee X-Ray 07/03/17 10:13 IMPRESSION: Comminuted fracture of the proximal tibia. Chest X-Ray 07/03/17 12:58 IMPRESSION: NO ACUTE RADIOGRAPHIC FINDING IN THE CHEST. Lower Extremity CT 07/04/17 00:00 IMPRESSION: Comminuted acute nondisplaced calcaneal fracture Fluoroscopy 07/06/17 00:00 IMPRESSION: Open reduction internal fixation of calcaneal fracture. Refer to operative note for further information. Os Calcis X-ray 07/06/17 00:00 IMPRESSION: Open reduction internal fixation of calcaneal fracture. Refer to operative note for further information. Tibia/Fibula X-Ray 07/06/17 00:00 IMPRESSION: Open reduction internal fixation of proximal tibial fracture. Refer to operative note for further information. Assessment & Plan - Diagnosis (1) Chronic pain Qualifiers: Chronic pain type: chronic pain syndrome Qualified Code(s): G89.4 - Chronic pain syndrome Is this a current diagnosis for this admission?: Yes Plan: At the time of discharge, he will need a 7 - 10 day supply of methadone, enough to allow him to follow-up with his methadone clinic. He will not be prescribed any other opioids (2) Closed fracture of left proximal tibia Qualifiers: Encounter type: initial encounter Fracture morphology: unspecified fracture morphology Qualified Code(s): S82.102A - Unspecified fracture of upper end of left tibia, initial encounter for closed fracture Is this a current diagnosis for this admission?: Yes Plan: Nonweightbearing. He will need to follow-up with orthopedics as an outpatient. (3) Methadone dependence Is this a current diagnosis for this admission?: Yes Plan: He will follow-up at his methadone post discharge. (4) Right calcaneal fracture Qualifiers: Encounter type: initial encounter Calcaneus location: unspecified portion of calcaneus Fracture type: closed Fracture alignment: nondisplaced Qualified Code(s): S92.001A - Unspecified fracture of right calcaneus, initial encounter for closed fracture Is this a current diagnosis for this admission?: Yes Plan: Follow-up with orthopedics as an outpatient - Time Time Spent with patient: 15-24 minutes Medications reviewed and adjusted accordingly: Yes Anticipated discharge: Home - Inpatient Certification Based on my medical assessment, after consideration of the patient's comorbidities, presenting symptoms, or acuity I expect that the services needed warrant INPATIENT care.: Yes I certify that my determination is in accordance with my understanding of Medicare's requirements for reasonable and necessary INPATIENT services [42 CFR 412.3e].: Yes Medical Necessity: Need for Pain Control
[2017-07-12] MEDS ORDERED: CLONIDINE HCL 0.1 MG TABLET PO PRN (08:57)
[2017-07-12] MEDS: ENOXAPARIN SODIUM INJ 40 MG/0.4 ML DISP.SYRIN SUBCUT SCH (09:21)
[2017-07-12] MEDS: ASPIRIN 81 MG TABLET, ENT COATED PO SCH (09:21)
[2017-07-12] MEDS: HYDROMORPHONE HCL 2 MG TABLET PO PRN ×3 (09:21→22:17)
[2017-07-13] MEDS: HYDROMORPHONE HCL 2 MG TABLET PO PRN ×4 (02:28→20:09)
[2017-07-13] MEDS: METHADONE HCL 10 MG TABLET PO SCH ×3 (05:43→22:09)
[2017-07-13] MEDS: ENOXAPARIN SODIUM INJ 40 MG/0.4 ML DISP.SYRIN SUBCUT SCH (09:52)
[2017-07-13] MEDS: ASPIRIN 81 MG TABLET, ENT COATED PO SCH (09:53)
--- NOTE | 2017-07-13 12:40 | PDOC PROGRESS REPORT ---
Subjective Progress Note for:: 07/13/17 Subjective:: No issues overnight Reason For Visit: TIBIA FRACTURE Physical Exam Vital Signs: Temp Pulse Resp BP Pulse Ox 37.4 C 72 18 134/68 H 98 07/12/17 23:45 07/12/17 23:45 07/12/17 23:45 07/12/17 23:45 07/12/17 23:45 Intake & Output 07/12/17 07/13/17 07/14/17 06:59 06:59 06:59 Intake Total 1170 1675 Output Total 2250 1575 Balance -1080 100 Weight 90.5 kg 91.5 kg Adult Front & Back Image: 1 - splint and dressing dry clean and intact. ecchymosis. NVI distally 2 - KI on, Dressing dry clean and intact. NVI distally Results Laboratory Results: 07/08/17 08:53 07/07/17 04:27 Impressions: Ankle X-Ray 07/03/17 10:09 IMPRESSION: Apparent calcaneal fractures. No acute abnormality is seen in the ankle. Knee X-Ray 07/03/17 10:13 IMPRESSION: Comminuted fracture of the proximal tibia. Chest X-Ray 07/03/17 12:58 IMPRESSION: NO ACUTE RADIOGRAPHIC FINDING IN THE CHEST. Lower Extremity CT 07/04/17 00:00 IMPRESSION: Comminuted acute nondisplaced calcaneal fracture Fluoroscopy 07/06/17 00:00 IMPRESSION: Open reduction internal fixation of calcaneal fracture. Refer to operative note for further information. Os Calcis X-ray 07/06/17 00:00 IMPRESSION: Open reduction internal fixation of calcaneal fracture. Refer to operative note for further information. Tibia/Fibula X-Ray 07/06/17 00:00 IMPRESSION: Open reduction internal fixation of proximal tibial fracture. Refer to operative note for further information. Assessment & Plan - Plan Summary Plan Summary: s/p ORIF of left tibial plateau and right calcaneus fractures NWB BL LE remove stapels at 2 weeks
[2017-07-13] MEDS: KETOROLAC TROMETHAMINE INJ/PF 30 MG/1 ML SDV IV PRN ×2 (12:57→22:45)
--- NOTE | 2017-07-13 15:36 | PDOC PROGRESS REPORT ---
Subjective Subjective:: Patient admitted with right cranial fracture and left tibia fracture. He has been seen by the orthopedist who is recommending an open reduction and internal fixation with surgery tentatively scheduled for Thursday. Patient still complaining of pain and pain management has been consulted with recommendations noted. Patient is on long-term methadone use and has been seen by pain management. He is awaiting home discharges once supplies are available Reason For Visit: TIBIA FRACTURE Physical Exam Vital Signs: Temp Pulse Resp BP Pulse Ox 99.4 F 72 18 134/68 H 98 07/12/17 23:45 07/12/17 23:45 07/12/17 23:45 07/12/17 23:45 07/12/17 23:45 Intake & Output 07/12/17 07/13/17 07/14/17 06:59 06:59 06:59 Intake Total 1170 1675 Output Total 2250 1575 Balance -1080 100 Weight 90.5 kg 91.5 kg Results Laboratory Results: 07/08/17 08:53 07/07/17 04:27 Impressions: Ankle X-Ray 07/03/17 10:09 IMPRESSION: Apparent calcaneal fractures. No acute abnormality is seen in the ankle. Knee X-Ray 07/03/17 10:13 IMPRESSION: Comminuted fracture of the proximal tibia. Chest X-Ray 07/03/17 12:58 IMPRESSION: NO ACUTE RADIOGRAPHIC FINDING IN THE CHEST. Lower Extremity CT 07/04/17 00:00 IMPRESSION: Comminuted acute nondisplaced calcaneal fracture Fluoroscopy 07/06/17 00:00 IMPRESSION: Open reduction internal fixation of calcaneal fracture. Refer to operative note for further information. Os Calcis X-ray 07/06/17 00:00 IMPRESSION: Open reduction internal fixation of calcaneal fracture. Refer to operative note for further information. Tibia/Fibula X-Ray 07/06/17 00:00 IMPRESSION: Open reduction internal fixation of proximal tibial fracture. Refer to operative note for further information. Assessment & Plan - Diagnosis (1) Closed fracture of left proximal tibia Qualifiers: Encounter type: initial encounter Fracture morphology: unspecified fracture morphology Qualified Code(s): S82.102A - Unspecified fracture of upper end of left tibia, initial encounter for closed fracture Is this a current diagnosis for this admission?: Yes Plan: s/p ORIF Simon LE NWB (2) Impaired ambulation Is this a current diagnosis for this admission?: Yes Plan: PT and dc home once equipment available (3) Right calcaneal fracture Qualifiers: Encounter type: initial encounter Calcaneus location: unspecified portion of calcaneus Fracture type: closed Fracture alignment: nondisplaced Qualified Code(s): S92.001A - Unspecified fracture of right calcaneus, initial encounter for closed fracture Is this a current diagnosis for this admission?: Yes (4) Methadone dependence Is this a current diagnosis for this admission?: Yes Plan: Pain is controlled (5) Anemia Qualifiers: Anemia type: unspecified type Qualified Code(s): D64.9 - Anemia, unspecified Is this a current diagnosis for this admission?: Yes Plan: Stable, slight worsening post op - Time Time Spent with patient: 15-24 minutes Medications reviewed and adjusted accordingly: Yes Anticipated discharge: Home Within: within 48 hours - Inpatient Certification Based on my medical assessment, after consideration of the patient's comorbidities, presenting symptoms, or acuity I expect that the services needed warrant INPATIENT care.: Yes Medical Necessity: Need for Pain Control
[2017-07-14] MEDS: HYDROMORPHONE HCL 2 MG TABLET PO PRN (01:47)
[2017-07-14] MEDS: METHADONE HCL 10 MG TABLET PO SCH ×2 (05:37→12:03)
--- NOTE | 2017-07-14 08:50 | PDOC DISCHARGE SUMMARY ---
General - Admit/Disc Date/PCP Admission Date/Primary Care Provider: 07/03/17 14:37 Discharge Date: 07/14/17 - Discharge Diagnosis (1) Closed fracture of left proximal tibia Is this a current diagnosis for this admission?: Yes (2) Impaired ambulation Is this a current diagnosis for this admission?: Yes (3) Right calcaneal fracture Is this a current diagnosis for this admission?: Yes (4) Methadone dependence Is this a current diagnosis for this admission?: Yes (5) Anemia Is this a current diagnosis for this admission?: Yes - Additional Information Resuscitation Status: Full Code Discharge Diet: Regular Discharge Activity: Other - Non weight bearing Prescriptions: Hydromorphone HCl [Dilaudid 2 mg Tablet] 2 mg PO Q4HP PRN #20 tablet PRN Reason: Clonidine HCl [Catapres 0.1 mg Tablet] 0.1 mg PO Q6HP PRN #120 tablet PRN Reason: Polyethylene Glycol 3350 [Miralax Powder 17 gm/Packet] 1 packet PO DAILY #1 pkg Home Medications: Acetaminophen [Tylenol 325 mg Tablet] 650 mg PO Q6HP PRN tablet 07/14/17 Aspirin [Ecotrin 81 mg EC Tablet] 81 mg PO DAILY tabec 07/14/17 Clonidine HCl [Catapres 0.1 mg Tablet] 0.1 mg PO Q6HP PRN #120 tablet 07/14/17 Hydromorphone HCl [Dilaudid 2 mg Tablet] 2 mg PO Q4HP PRN #20 tablet 07/14/17 Methadone HCl [Dolophine 10 mg Tablet] 40 mg PO Q8 tablet 07/14/17 Polyethylene Glycol 3350 [Miralax Powder 17 gm/Packet] 1 packet PO DAILY #1 pkg 07/14/17 History of Present Illness History of Present Illness: MARS LUEVANO is a 52 year old male Patient apparently fell from a ladder and sustained a right calcaneal fracture and left proximal comminuted tibia fracture. The orthopedist was consulted and at this point patient is admitted for pain management and stabilization prior to discharge. Past medical history although he is on chronic methadone use and opioid dependence Hospital Course Hospital Course: Patient was admitted with a tibia fracture as well as calcaneal fracture which he sustained from a fall from a ladder. Since subsequently underwent ORIF of proximal tibia fracture and calcaneal fracture. Pain management has been an issue as patient was on methadone management prior to admission. At this point his pain seems to be relatively well controlled Patient is to remain nonweightbearing and is to follow-up with orthopedics in 2 weeks for staple removal. Proximal tibia fracture status post ORIF. He is to follow-up with orthopedics as directed She was very upset as I declined to give him a prescription for methadone. Explain to him that would not be to do this on a long-term basis and he needs to follow-up with his methadone clinic. Said he is unable to get to his clinic due to his status. A call was made to Dr. Pina's office and after further discussions he was asked to follow-up with Dr. Pina's office today and he will prescribe the methadone for him as per protocol. Physical Exam Vital Signs: Temp Pulse Resp BP Pulse Ox 98.3 F 68 17 142/62 H 97 07/14/17 00:00 07/14/17 00:00 07/14/17 00:00 07/14/17 00:00 07/14/17 00:00 Intake & Output 07/13/17 07/14/17 07/15/17 06:59 06:59 06:59 Intake Total 1675 834 Output Total 1575 1775 Balance 100 -941 Weight 91.5 kg 90.7 kg General appearance: PRESENT: no acute distress, cooperative Head exam: PRESENT: atraumatic Eye exam: PRESENT: conjunctiva pink, EOMI, PERRLA. ABSENT: scleral icterus Neck exam: ABSENT: carotid bruit, JVD, lymphadenopathy, thyromegaly Pulses: PRESENT: normal dorsalis pedis pul GI/Abdominal exam: PRESENT: normal bowel sounds, soft. ABSENT: distended, guarding, mass, organolmegaly, rebound, tenderness Rectal exam: PRESENT: deferred Neurological exam: PRESENT: alert - Bilateral lower extremities cast/dressing, awake, oriented to person, oriented to place, oriented to time, oriented to situation, CN II-XII grossly intact. ABSENT: motor sensory deficit Results Laboratory Results: 07/08/17 08:53 07/07/17 04:27 Impressions: Ankle X-Ray 07/03/17 10:09 IMPRESSION: Apparent calcaneal fractures. No acute abnormality is seen in the ankle. Knee X-Ray 07/03/17 10:13 IMPRESSION: Comminuted fracture of the proximal tibia. Chest X-Ray 07/03/17 12:58 IMPRESSION: NO ACUTE RADIOGRAPHIC FINDING IN THE CHEST. Lower Extremity CT 07/04/17 00:00 IMPRESSION: Comminuted acute nondisplaced calcaneal fracture Fluoroscopy 07/06/17 00:00 IMPRESSION: Open reduction internal fixation of calcaneal fracture. Refer to operative note for further information. Os Calcis X-ray 07/06/17 00:00 IMPRESSION: Open reduction internal fixation of calcaneal fracture. Refer to operative note for further information. Tibia/Fibula X-Ray 07/06/17 00:00 IMPRESSION: Open reduction internal fixation of proximal tibial fracture. Refer to operative note for further information. Qualifiers - * [facility] BEING DISCHARGED WITH ANY OF THE FOLLOWING DIAGNOSIS?: No
[2017-07-14] MEDS: ASPIRIN 81 MG TABLET, ENT COATED PO SCH (09:05)
[2017-07-14] MEDS: ENOXAPARIN SODIUM INJ 40 MG/0.4 ML DISP.SYRIN SUBCUT SCH (09:05)
[2017-07-14 11:43] VITALS: BP 142/62
== END 2017-07-14 12:36 | disposition home health service (06) | DRG 493 ==
LOC: ER 09:47 → EH 14:37 → 5 07-04 00:13
PROVIDERS: ADMIT Family Medicine; ATTEND Family Medicine
PROC: 0QSH04Z Reposition Left Tibia with Internal Fixation Device, Open Approach (ICD-10-PCS; principal; 2017-07-06 09:45)
PROC: 0QSL04Z Reposition Right Tarsal with Internal Fixation Device, Open Approach (ICD-10-PCS; 2017-07-06 09:45)
DX: S82.142A Displaced bicondylar fracture of left tibia, initial encounter for closed fracture (principal); F11.20 Opioid dependence, uncomplicated; S92.061A Displaced intraarticular fracture of right calcaneus, initial encounter for closed fracture; D64.9 Anemia, unspecified; G89.4 Chronic pain syndrome; W11.XXXA Fall on and from ladder, initial encounter; Y93.39 Activity, other involving climbing, rappelling and jumping off; Y92.9 Unspecified place or not applicable
CPT/HCPCS: 01480; 36415; 71045; 80048; 80053; 80307; 80358; 83735; 85025; 85610; 85730; 93005; 93010; 96374; 96375; 96376; 99285; C1713; J0131; J0330; J0690; J1100; J1170; J1650; J1885; J2060; J2175; J2250; J2270; J2405; J2704; J2765; J3010; J3490; J7120; L1830

== ENCOUNTER → 2020-01-12 | Outpatient (CLI) | payer MEDICAID | LOC: OD 14:55 | PROVIDERS: ATTEND Internal Medicine Gastroenterology | DX: B18.2 Chronic viral hepatitis C (principal) | CPT/HCPCS: 36415; 87522 ==